=== PATIENT | female | born 1965 | race Caucasian/White ===

== ENCOUNTER 2020-05-17 11:12 | Outpatient (REF) | payer OTHER, SELFPAY | END 2020-05-17 11:13 | disposition home or self-care (01) | LOC: HO.LAB 11:12 | PROVIDERS: Visit Provider Hospitalist | DX: Z20.822 Contact with and (suspected) exposure to COVID-19 (principal) | CPT/HCPCS: 36415; U0003 ==

== ENCOUNTER 2021-06-29 10:04 | Outpatient (REF) | payer OTHER, SELFPAY ==
--- NOTE | ~2021-06-29 | MM_ITS ---
EXAMINATION: MM SCREENING DIGITAL BREAST TOMOSYNTHESIS, BILATERAL CLINICAL INFORMATION: Screening. Asymptomatic. The lifetime risk of breast cancer based on the Tyrer-Cuzick Model is 7%. COMPARISON: Mammography: 05/28/2019, 05/22/2018, 08/15/2016 TECHNIQUE: Digital breast tomosynthesis is performed in both the craniocaudal and mediolateral oblique views along with computer-aided detection (CAD). Synthesized 2D images are generated from the tomosynthesis. FINDINGS: There are scattered areas of fibroglandular density (ACR BI-RADS breast composition Category b). There are no significant masses, abnormal calcifications, or other abnormalities. Parenchymal pattern is similar to prior studies. There are no significant changes. MM/MM tomosynthesis screening BI IMPRESSION: No mammographic evidence of malignancy. ASSESSMENT: BI-RADS 1: Negative RECOMMENDATION: Routine annual mammography screening. This patient's information was entered into a reminder system with a target due date for their next mammogram.
== END 2021-06-29 10:05 | disposition home or self-care (01) ==
LOC: HO.MAMMO 10:04
PROVIDERS: Visit Provider Pediatrics
DX: Z12.31 Encounter for screening mammogram for malignant neoplasm of breast (principal)
CPT/HCPCS: 77063; 77067

== ENCOUNTER 2022-03-21 14:15 | Outpatient (REF) | payer OTHER, SELFPAY ==
--- NOTE | ~2022-03-21 | MM_ITS ---
EXAMINATION: MM DIAGNOSTIC DIGITAL BREAST TOMOSYNTHESIS, BILATERAL US TARGETED BREAST, LEFT CLINICAL INFORMATION: Left breast lump upper outer quadrant. COMPARISON: Mammography: 06/29/2021 and studies dating back to 03/13/2012. TECHNIQUE: Digital breast tomosynthesis is performed in both the craniocaudal and mediolateral oblique views along with computer-aided detection (CAD). Synthesized 2D images are generated from the tomosynthesis. FINDINGS: There are scattered areas of fibroglandular density (ACR BI-RADS breast composition Category b). There are no significant masses, abnormal calcifications, or other abnormalities. ULTRASOUND: Targeted left breast ultrasound did not demonstrate any suspicious cystic or solid masses or region of abnormal distal sound shadowing. There is noted to be a homogeneously hyperechoic and circumscribed lesion without internal vascularity and without distal sound shadowing representing a lipoma at 12 o'clock position left breast. Results are discussed with the patient at time of visit. MM/MM tomosynthesis diagnostic BI IMPRESSION: No mammographic or ultrasound evidence of malignancy. ASSESSMENT: BI-RADS 2: Benign. RECOMMENDATION: Routine annual mammography screening. This patient's information was entered into a reminder system with a target due date for their next mammogram.
== END 2022-03-21 14:16 | disposition home or self-care (01) ==
LOC: HO.MAMMO 14:15
PROVIDERS: Visit Provider Obstetrics & Gynecology
DX: N63.21 Unspecified lump in the left breast, upper outer quadrant (principal)
CPT/HCPCS: 76642; 77062; 77066

== ENCOUNTER 2022-10-22 15:42 | Outpatient (REF) | payer OTHER, SELFPAY ==
--- NOTE | ~2022-10-22 | MM_ITS ---
EXAMINATION: MM SCREENING DIGITAL BREAST TOMOSYNTHESIS, BILATERAL CLINICAL INFORMATION: Screening. Asymptomatic. Family history breast cancer, mother. The lifetime risk of breast cancer based on the Tyrer-Cuzick Model is 14%. COMPARISON: Mammography: 03/21/2022, 06/29/2021, 05/28/2019, 05/22/2018; left breast ultrasound 03/21/2022 TECHNIQUE: Digital breast tomosynthesis is performed in both the craniocaudal and mediolateral oblique views along with computer-aided detection (CAD). Synthesized 2D images are generated from the tomosynthesis. FINDINGS: There are scattered areas of fibroglandular density (ACR BI-RADS breast composition Category b). There are no significant masses, abnormal calcifications, or other abnormalities. Parenchymal pattern is similar to prior studies. There is no developing density or architectural abnormality. The axilla and skin contours are unremarkable. No significant changes. MM/MM tomosynthesis screening BI IMPRESSION: No mammographic evidence of malignancy. ASSESSMENT: BI-RADS 1: Negative RECOMMENDATION: Routine annual mammography screening. This patient's information was entered into a reminder system with a target due date for their next mammogram.
== END 2022-10-22 15:43 | disposition home or self-care (01) ==
LOC: HO.MAMMO 15:42
PROVIDERS: Visit Provider Internal Medicine
DX: Z12.31 Encounter for screening mammogram for malignant neoplasm of breast (principal)
CPT/HCPCS: 77063; 77067

== ENCOUNTER 2023-01-05 18:05 | Emergency (ER) | payer OTHER, SELFPAY ==
--- NOTE | ~2023-01-05 | XR_ITS ---
EXAMINATION: XR WRIST, LEFT XR HAND, LEFT CLINICAL INFORMATION: Pain radial aspect of the wrist COMPARISON: None available. TECHNIQUE: PA, lateral, and oblique views of the left wrist and PA, lateral, and oblique views of the left hand FINDINGS: Minor spurring only. Scaphoid intact. No deformity or focal bony lesion. No erosive arthritis. XR/XR hand wrist LT IMPRESSION: Minor spurring only. No evidence of an acute fracture.
[2023-01-05 18:23] VITALS: BP 156/94; PULSE 99; RESP 18; TEMP 36.4; O2SAT 96; BMI 37.2
--- NOTE | 2023-01-05 18:23 | ED.GENADULT ---
HPI - General Adult General Chief complaint: Extremity Injury, Upper Stated complaint: Wants Xray of Lft wrist/Fall/Injury Time Seen by Provider: 01/05/23 20:21 Source: patient Mode of arrival: ambulatory Limitations: no limitations History of Present Illness HPI narrative: Patient is a 57-year-old right hand dominant female presenting to the emergency department with complaint of left wrist pain after a fall this morning. States she dropped her keys and when she bent over to pick them up she lost her footing and fell forward. Complains of left wrist pain and swelling on radial side. Full ROM all fingers. Took Tylenol this morning. Denies any numbness or tingling. BP elevated in triage, patient states that she just started taking amlodipine. MD complaint: wrist pain Onset (ago): hour(s) Location: upper extremity Radiation: non-radiation Severity: moderate Quality: aching Pain Consistency: constant Relieving factors: rest Exacerbating factors: movement Associated symptoms: denies other symptoms Treatments prior to arrival: other (Tylenol) Related Data Home Medications Medication Instructions Recorded Confirmed No Known Home Meds 05/17/20 Allergies Allergy/AdvReac Type Severity Reaction Status Date / Time azithromycin [AZITHROMYCIN] Allergy Intermediate Hives Verified 01/05/23 18:27 clarithromycin [From Biaxin] Allergy Intermediate Nightmare, Verified 01/05/23 18:27 Rash erythromycin base Allergy Intermediate Nausea Verified 01/05/23 18:27 Sulfa (Sulfonamide Allergy Intermediate Rash Verified 01/05/23 18:27 Antibiotics) sulfamethoxazole Allergy Intermediate Hives Verified 01/05/23 18:27 [From Bactrim] trimethoprim [From Bactrim] Allergy Intermediate Hives Verified 01/05/23 18:27 adhesive Allergy Mild Rash Verified 01/05/23 18:27 Review of Systems Review of Systems: As per HPI Yes all other systems are reviewed and are negative Constitutional: Constitutional: Reports as per HPI Physical Exam ED Vital Signs: Vital Signs - 24 hr 01/05/23 18:23 Temperature 97.6 F Pulse Rate 99 Respiratory Rate 18 Blood Pressure 156/94 H Pulse Oximetry 96 Oxygen Delivery Method Room Air BMI result Body Mass Index 37.2 Vital signs have been reviewed and appear to be correct. Blood pressure elevated. Heart rate normal. Respiratory rate normal. Temperature normal. Oxygen saturation normal. Const General: cooperative, healthy appearing and no acute distress Orientation/consciousness: oriented to person, oriented to place, oriented to time and patient oriented x3 Limitations: no limitations HENMT Head: Yes normocephalic and Yes atraumatic Ears: external ears normal General nose exam: Normal external nose present Face and sinus: Yes face symmetric Mouth: oropharynx normal and moist mucous membranes Throat: Yes uvula midline Eyes Pupils: Equal, round and reactive pupils present Neck Neck: Yes normal visual inspection and Yes supple Resp Effort & Inspection: normal respiratory effort and able to speak in complete sentences Auscultation: clear to auscultation bilaterally Cardio Rate: regular rate Rhythm: regular rhythm Heart sounds: S1 normal heart sound present and S2 normal heart sound present GI Palpation (GI): Soft to palpation and nontender Auscultation: normoactive bowel sounds General: Yes no CVA tenderness Back/Spine/Pelvis Back: no CVA tenderness Skin General skin exam: elasticity normal and turgor normal Neuro General: oriented to person, oriented to place, oriented to time, patient oriented x3, moves all extremities, no focal motor deficits and CN's II-XI intact bilaterally Cranial nerves: Yes Equal, round and reactive pupils present Cognition (Neuro): normal cognition Extrem General: Yes full ROM, Yes normal exam except as noted, Yes no pedal edema and Yes no calf tenderness Left upper extremity: wrist forearm distal Details: tenderness Location: of the distal radius, swelling Location: of the dorsal wrist, normal ROM, normal vascular exam and radial pulse present; no unusual warmth and no ecchymosis and hand Details: normal to inspection, normal capillary refill, neuromotor exam normal, neurosensory exam normal and normal ROM of fingers Psych Mental Status: mental status grossly normal Affect: normal affect Thought process: Normal thought process present Medical Decision Making Medical Decision Making MDM Narrative: Patient is a 57-year-old right hand dominant female presenting to the emergency department with complaint of left wrist pain after a fall this morning. On exam patient is awake, A+Ox3, VS WNL, afebrile, normal neurological exam without focal deficits, mild swelling and tenderness to left distal radius, full ROM, 2+ radial pulse, no ecchymosis. Given reported symptoms and physical exam findings, initial differential includes strain, sprain, fracture. X-ray notable for no acute fracture. My interpretation is in agreement with the radiologist's interpretation. X-ray results discussed with patient and all questions answered. Yfn wrap applied in the ED with positive CMS prior to and after application. Advised patient to elevate wrist while at rest, apply ice throughout the day, Tylenol and ibuprofen as needed for discomfort. Will refer patient to Orthopedics for any ongoing symptoms. Advised patient to follow-up with PCP as well. Return precautions discussed. Patient verbalized understanding of and agreement with plan. Differential Diagnosis Differential Diagnoses: The differential diagnosis associated with the presentation includes As per [facility] Independent Interpretation I performed an independent interpretation of an: Plain X-Ray Interpretation: no fracture left wrist Radiology Impression Discussion of test interpretation with radiology: I have reviewed the radiologist's reading. Radiologist Impression: XR/XR hand wrist LT IMPRESSION: Minor spurring only. No evidence of an acute fracture. External Record Review External record reviewed: Inpatient record, Office record and Outpatient record Discharge Plan Discharge Clinical Impression: Left wrist pain Patient Disposition: Home, Self-Care Instructions: Wrist Injury (ED), R.I.C.E. Treatment (ED) Additional Instructions: You have been evaluated in the emergency department today for wrist pain. Your evaluation did not find evidence of medical conditions requiring emergent intervention at this time. No evidence of fracture on x-ray. Please rest, ice, and elevate your wrist, and resume normal activities as tolerated. We recommend you take 600mg ibuprofen every 6 hours or 650mg Tylenol every 6 hours as needed for pain. If needed you can alternate these medications as they take 1 medication every 3 hours. For instance at noon take ibuprofen, then at 3:00 p.m. take Tylenol, then at 6:00 p.m. take ibuprofen. Please schedule an appointment for follow-up with your primary care provider this week. Return to the emergency department if you experience worsening pain, numbness, tingling, change of color in your hand, or any other concerning symptoms. If symptoms persist beyond the next 1-2 weeks, you can contact orthopedics for a follow up appointment. Prescriptions: No Action No Known Home Meds Referrals: [facility] [place] Orthopedic Surgeons [Provider Group]
== END 2023-01-05 20:42 | disposition home or self-care (01) ==
PROVIDERS: Emergency Provider Internal Medicine; PCP Internal Medicine
DX: M25.532 Pain in left wrist (principal); Z79.899 Other long term (current) drug therapy
CPT/HCPCS: 73110; 73130; 99282; 99283

== ENCOUNTER 2023-03-06 11:04 | Outpatient (AMB) | payer OTHER, SELFPAY ==
[2023-03-06 11:37] VITALS: BP 142/82; PULSE 91; O2SAT 98; BMI 38.2
--- NOTE | 2023-03-06 11:37 | AM.OFFWIN_ITS ---
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) Patient Tobacco Use Status: Never used Tobacco Allergies azithromycin [AZITHROMYCIN] Allergy (Intermediate, Verified 03/06/23 11:38) Hives clarithromycin [From Biaxin] Allergy (Intermediate, Verified 03/06/23 11:38) Nightmare, Rash erythromycin base Allergy (Intermediate, Verified 03/06/23 11:38) Nausea Sulfa (Sulfonamide Antibiotics) Allergy (Intermediate, Verified 03/06/23 11:38) Rash sulfamethoxazole [From Bactrim] Allergy (Intermediate, Verified 03/06/23 11:38) Hives trimethoprim [From Bactrim] Allergy (Intermediate, Verified 03/06/23 11:38) Hives adhesive Allergy (Mild, Verified 03/06/23 11:38) Rash Do you need a note to return to daycare/school/sports/work: Yes HPI EST/left wrist injury(lobby) 2 HPI0 Details Patient is a 57-year-old female came in today to be evaluated for pain and weakness left wrist Patient had a fall January 05 she tripped and fell on her left lower extremity She does not remember if her hand was outstretched or not. But she was evaluated at [facility] She had an x-ray of wrist done in the emergency room which showed Minor spurring only. No evidence of an acute fracture. However she is not getting better, on examination she is losing muscle mass over her thumb And have of week wrist metal roaster compared to right side. I am ordering x-ray of her wrist Patient will need evaluation by hand specialist Meanwhile her wrist splint was provided [facility] Social History Patient Tobacco Use Status: Never used Tobacco Review of Systems Const All systems reviewed & are unremarkable except as noted in HPI and below Physical Exam Vital Signs: Last Vital Signs Pulse 91 03/06/23 11:37 BP 142/82 H 03/06/23 11:37 Pulse Ox 98 03/06/23 11:37 Oxygen Delivery Method Room Air 11/03/23 11:37 BMI result Body Mass Index 38.2 Const General: no acute distress Orientation/consciousness: patient oriented x3 Eyes General: appearance normal, both eyes and all related structures Resp Effort & Inspection: normal respiratory effort and able to speak in complete sentences Auscultation: clear to auscultation bilaterally Neuro General: patient oriented x3 Extrem Hand/finger images: 2 1. Reduce muscle mass compared to right 2. Pain with palpation and movement Psych Mental Status: mental status grossly normal Assessment & Plan Assessment & Plan (1) Left wrist injury: Code(s): S69.92XA - Unspecified injury of left wrist, hand and finger(s), initial encounter Qualifiers: Encounter type: sequela Qualified Code(s): S69.92XS - Unspecified injury of left wrist, hand and finger(s), sequela (2) Wrist weakness: Code(s): R29.898 - Other symptoms and signs involving the musculoskeletal system (3) Decreased metal roaster strength of left hand: Code(s): R29.898 - Other symptoms and signs involving the musculoskeletal system (4) Left wrist pain: Code(s): M25.532 - Pain in left wrist (5) Muscle wasting: Code(s): M62.50 - Muscle wasting and atrophy, not elsewhere classified, unspecified site Qualifiers: Laterality: left Muscle atrophy area: hand Qualified Code(s): M62.542 - Muscle wasting and atrophy, not elsewhere classified, left hand Plan Patient is a 57-year-old female came in today to be evaluated for pain and weakness left wrist Patient had a fall January 05 she tripped and fell on her left lower extremity She does not remember if her hand was outstretched or not. But she was evaluated at [facility] She had an x-ray of wrist done in the emergency room which showed Minor spurring only. No evidence of an acute fracture. However she is not getting better, on examination she is losing muscle mass over her thumb And have of week wrist metal roaster compared to right side. I am ordering x-ray of her wrist Patient will need evaluation by hand specialist Meanwhile her wrist splint was provided Orders: Orders 2 XR hand wrist LT Today R29.898 - Other symptoms and signs involving the musculoskeletal system, S69.92XA - Unspecified injury of left wrist, hand and finger(s), initial encounter Coding Level of Care Code Est Pt Level 4 (78604) Diagnoses Injury of left wrist, sequela S69.92XS Encounter type: sequela Wrist weakness R29.898 Decreased metal roaster strength of left hand R29.898 Left wrist pain M25.532 Atrophy of muscle of left hand M62.542 Laterality: left Muscle atrophy area: hand
== END 2023-03-06 12:37 | disposition home or self-care (01) ==
PROVIDERS: PCP Internal Medicine; Visit Provider Internal Medicine
DX: S69.92XS Unspecified injury of left wrist, hand and finger(s), sequela (principal); R29.898 Other symptoms and signs involving the musculoskeletal system; M25.532 Pain in left wrist; M62.542 Muscle wasting and atrophy, not elsewhere classified, left hand
CPT/HCPCS: 99214

== ENCOUNTER 2023-03-06 11:56 | Outpatient (REF) | payer OTHER, SELFPAY ==
--- NOTE | ~2023-03-06 | XR_ITS ---
EXAMINATION: XR WRIST, LEFT XR HAND, LEFT CLINICAL INFORMATION: Injury left wrist. COMPARISON: None available. TECHNIQUE: PA, lateral, and oblique views of the left wrist and PA, lateral, and oblique views of the left hand FINDINGS: LEFT WRIST: The bones and soft tissues are normal. No fracture. Alignment is anatomic. Joint spaces are maintained. No erosions or soft tissue calcifications. LEFT HAND: The bones and soft tissues are normal. No fracture. Alignment is anatomic. Joint spaces are maintained. No erosions or soft tissue calcifications. XR/XR hand wrist LT IMPRESSION: Normal left hand and wrist.
== END 2023-03-06 11:57 | disposition home or self-care (01) ==
LOC: HO.HMGCX 11:56
PROVIDERS: PCP Internal Medicine; Visit Provider Internal Medicine
DX: S69.92XA Unspecified injury of left wrist, hand and finger(s), initial encounter (principal); R29.898 Other symptoms and signs involving the musculoskeletal system
CPT/HCPCS: 73110; 73130

== ENCOUNTER → 2023-05-07 11:12 | Outpatient (BNVA) | payer OTHER, SELFPAY | PROVIDERS: PCP Internal Medicine; Visit Provider Physical Medicine & Rehabilitation ==

== ENCOUNTER 2023-05-14 08:33 | Outpatient (AMB) | payer OTHER, SELFPAY ==
--- NOTE | 2023-05-14 08:48 | MHC.OFFVIS ---
Intake Vital Signs 05/14/23 08:50 Height 5 ft 1 in Weight 202 lb BMI 38.2 Intake Visit Reasons: [employer]- left wrist, hand and finger pain Intake Note: Alfonso 57 yr old right hand dominant female presents today for a new patient visit for her left wrist. States her pain is mainly at base of her CMC joint and shooting pain around wrist that started in January S/P falling at work on 01/05/23. Seen in ED and was told this was a sprain. States she is also experiencing numbness and tingling mostly in her tip of the thumb. States she worn a huong wrap for a few weeks and then switch to a brace after seeing her PCP which increase her pain. Allergies azithromycin [AZITHROMYCIN] Allergy (Intermediate, Verified 05/14/23 08:51) Hives clarithromycin [From Biaxin] Allergy (Intermediate, Verified 05/14/23 08:51) Nightmare, Rash erythromycin base Allergy (Intermediate, Verified 05/14/23 08:51) Nausea Sulfa (Sulfonamide Antibiotics) Allergy (Intermediate, Verified 05/14/23 08:51) Rash sulfamethoxazole [From Bactrim] Allergy (Intermediate, Verified 05/14/23 08:51) Hives trimethoprim [From Bactrim] Allergy (Intermediate, Verified 05/14/23 08:51) Hives adhesive Allergy (Mild, Verified 05/14/23 08:51) Rash HPI HPI Comments History of Present Illness Details Right handed, 57 year old, works as [employer]. Last January 2023, had fallen on outstretched left hand. Went to ER 01/05/23, xrays then was unremarkable, no fracture. Advised to huong wrap. Follow up xray in February also normal. However she continued to have shooting pain on left thumb, radial wrist, sometimes goes to wrist. Noted perhaps some swelling or change in the dent along the thumb. Tingling on the tip of thumb, especially when waking up in the morning. But denies actual numbness. Denies associated neck pain. 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 MSK: Some soft tissue swelling at the base of the thumb. No joint effusion or redness seen on left hand. No joint effusion noted. No deformity noted. No intrinsic hand weakness noted. No atrophy noted. Erika test positive left reproduce her usual pain. Carpal compression test negative. Tinel sign negative. No tenderness on medial or lateral epicondyles of elbow. Strength is 5/5 in all muscle groups tested. No increased tone noted. Neurological: Neurologic examination of the upper and lower extremities was nonfocal with intact sensation, muscle stretch reflexes and without focal motor deficits . Barone?s negative bilaterally. Gait is non-antalgic without loss of balance. Results Reviewed Results Reviewed: I independently reviewed the results of the following: Hand and wrist x-rays from February and January 2023, no fractures or displacement seen I reviewed records from the following: PCP Dr. Horton Assessment & Plan Assessment & Plan (1) De Quervain's tenosynovitis, left: Code(s): M65.4 - Radial styloid tenosynovitis [de Quervain] Plan Show signs of left de Quervain tenosynovitis. This diagnosis would explain her symptoms. No joint inflammation seen. No signs of carpal tunnel or nerve entrapment seen. X-ray did not show any fracture and clinically I see no suspicion for. Will start with wearing a [employer]fort Cool thumb spica splint during the day. Instructions and precautions advised. We will start her on ibuprofen 600 mg t.i.d. for 7 days, take with full stomach. Side effects discussed. If not better in 2 months, we could consider injection. Talked about relative rest, icing avoiding heavy lifting and repetitive motion for now. Prognosis is good for recovery. Assessment and plan discussed with patient, and patient was agreeable. All questions were answered thoroughly. Follow-up 2 months. Monica Boone MD, SAMANTHA Board Certified, [place] [employer] and Rehabilitation (ABPMR) Board Certified, [place] Board of Electrodiagnostic Medicine (ABEM) Medications: New ibuprofen 600 mg PO TID 21 tabs 0RF M65.4 - Radial styloid tenosynovitis [de Quervain] Coding Level of Care Code New Pt Level 4 (55210) Diagnoses De Quervain's tenosynovitis, left M65.4
[2023-05-14 08:50] VITALS: BMI 38.2
== END 2023-05-14 09:28 | disposition home or self-care (01) ==
PROVIDERS: PCP Internal Medicine; Visit Provider Physical Medicine & Rehabilitation
DX: M65.4 Radial styloid tenosynovitis [de Quervain] (principal)
CPT/HCPCS: 99204

== ENCOUNTER → 2023-05-14 08:33 | Outpatient (BNVA) | payer OTHER, SELFPAY | PROVIDERS: PCP Internal Medicine; Visit Provider Physical Medicine & Rehabilitation ==

== ENCOUNTER 2023-05-29 10:54 | Outpatient (AMB) | payer OTHER, SELFPAY ==
--- NOTE | 2023-05-29 10:56 | A.OFFPC_ITS ---
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 per [place] Allergies azithromycin [AZITHROMYCIN] Allergy (Intermediate, Verified 05/29/23 10:59) Hives clarithromycin [From Biaxin] Allergy (Intermediate, Verified 05/29/23 10:59) Nightmare, Rash erythromycin base Allergy (Intermediate, Verified 05/29/23 10:59) Nausea Sulfa (Sulfonamide Antibiotics) Allergy (Intermediate, Verified 05/29/23 10:59) Rash sulfamethoxazole [From Bactrim] Allergy (Intermediate, Verified 05/29/23 10:59) Hives trimethoprim [From Bactrim] Allergy (Intermediate, Verified 05/29/23 10:59) Hives adhesive Allergy (Mild, Verified 05/29/23 10:59) Rash Medication List - Last Reconciled 05/29/23 by Radha Horton MD amlodipine 5 mg PO DAILY ibuprofen 600 mg PO TID levalbuterol tartrate 45 mcg/actuation inhalation lorazepam 0.5 mg PO DAILY PRN Tobacco use date assessed: 05/29/23 Dental Screening Dental Screen Date: 05/29/23 Did you have a dental visit in the last 12 months?: Yes Did you have a dental problem in the last 6 months where you did not have access to dental care?: No Was dental information given to patient?: Patient has dentist HPI 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 est care ok per [place] HPI Details Patient is 48-year-old female came in today for establish care visit Previous primary care is located in [facility] I do not the medical records I do have some labs in the chart which were done in 2020 Patient says that last set of labs were done with the primary care 3 months ago Lipid disorder: I see that her LDL level is 161, recently labs showed very high triglycerides as per patient She is taking no medication for elevated lipids, I am repeating labs again Her B12 level was low in 2020 patient was started on supplement that she is taking we will recheck the level. Her white count was slightly low in 2020 we will be rechecking that as well Hypertension: Blood pressure is elevated she is on amlodipine 5 mg I am increasing the dose to 10 mg Seasonal asthma, patient is taking albuterol as needed Arthrosis: Ibuprofen as needed with food Patient have a history of ovarian cancer in 2007 she had chemotherapy and then radiation therapy Patient has developed irritable bowel after the radiation, whenever she is nervous she has diarrhea Patient is taking lorazepam 0.5 mg as needed that is helping Her mother is having metastatic breast cancer and is in her terminal stage Which is causing distress inpatient, she tells me that she is having hard time sleeping at night I have told her that she may take lorazepam at night if needed, I have sent 60 t ablets for 3 months I have sent message to our behavior health coordinator so we can have patient establish with a therapist We will provide with refill when patient will return in 3 months for follow-up In 2019 her parathyroid hormone was elevated I will be rechecking that BMI is elevated need to lose weight I will talk to her more at next visit Her OBGYN is Dr. Peraza at [facility] however patient is thinking of changing the provider She is now having regular gynecological checkups and has been stable after the chemo and radiation therapy Her stage was 1 b She recently had right lower extremity varicose vein treatment by Dr. 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 1. Little interest or pleasure in doing things: not at all 2. Feeling down, depressed, or hopeless: several days 3. Trouble falling or staying asleep, or sleeping too much: more than half the days 4. Feeling tired or having little energy: several days 5. Poor appetite or overeating: several days 6. Feeling bad about yourself - or that you are a failure or have let yourself or your family down: not at all 7. Trouble concentrating on things, such as reading the newspaper or watching television: several days 8. Moving or speaking so slowly that other people could have noticed. Or the opposite - being so fidgety or restless that you have been moving around a lot more than usual: not at all 9. Thoughts that you would be better off or of hurting yourself in some way: not at all Total score: 6 Depression Screening Interpretation: Negative Depression Screening Done: Yes 66016 - PHQ-9 Billing: Yes Source: Developed by Drs. Luis A Correia, Catie Dominguez, Paul Pollard and colleagues, with an educational john paul from [employer]. Thrive Questionnaire Date Thrive assessed: 05/29/23 I am a: Patient What is your living situation today?: I have a steady place to live Within the past 12 months, did the food you bought not last and you didn't have the money to get more?: Never true Within the past 12 months, did you worry whether your food would run out before you got money to buy more?: Never true Do you have trouble paying for medicines?: No Do you have trouble getting transportation to medical appointments?: No Do you have trouble paying your heating and electricity bill?: No Do you have trouble taking care of your child, family member or friend?: No Do you have trouble with day-to-day activities such as bathing, preparing meals, shopping, managing finances, etc.?: No Are you currently unemployed and looking for a job?: No Are you interested in more education?: No Please select the resources that you would like help with: None Currently or been in a relationship where the following occur: no concerns reported THRIVE Score: 0 AUDIT C Alcohol Use Questionnaire (AUDIT-C) 1. How often do you have a drink containing alcohol?: Never 3. How often do you have six or more drinks on one occasion?: Never Total Score: 0 Score Reviewed/Action Taken: Yes NARINDER-7 AMB Questionnaire NARINDER-7 Date NARINDER - 7 assessed: 05/29/23 Feeling nervous, anxious, or on edge: 1 = Several days Not being able to stop or control worryin = Not at all Worrying too much about different things: 1 = Several days Trouble relaxin = Several days Being so restless that it is hard to sit still: 0 = Not at all Becoming easily annoyed or irritable: 1 = Several days Feeling afraid as if something awful might happen: 1 = Several days Total NARINDER-7 score (0-4 normal; 5-9 mild; 10-14 moderate; 15-21 severe): 5 Source: Developed by Drs. Luis A Correia, Catie Dominguez, Paul Pollard and colleagues, with an educational john paul from [employer]. NARINDER-7 Assessment Billing NARINDER-7 Assessment Tool: NARINDER-7 Assessment 47780 Review of Systems Const Denies chills, Denies fever(s) and Denies headache(s) Eyes Denies blurry vision ENT Denies headache(s), Denies nasal discharge, Denies nasal obstruction, Denies odynophagia and Denies sinus pain Card Denies chest pain at rest and Denies chest pain with activity Resp Denies cough and Denies hemoptysis GI Denies diarrhea, Denies odynophagia, Denies vomiting and Denies hematemesis Reports as per HPI Musc Denies abnormal gait Skin/Breast Reports as per HPI Neuro Denies Neuro-related abnormal movements, Denies Abnormal speech present, Denies abnormal gait, Denies headache(s) and Denies Sensory deficit (Neuro) Psych Denies mood swings and Denies paranoia Endo Reports as per HPI Parth/Lymph Reports as per HPI Aller/Immun Reports as per HPI Physical exam (Primary Care) Vital Signs: Last Vital Signs Pulse 99 05/29/23 10:58 BP 148/78 H 05/29/23 10:58 Pulse Ox 99 05/29/23 10:58 Oxygen Delivery Method Room Air 05/29/23 10:58 BMI result Body Mass Index 38.4 Tobacco/Smoking Status: Tobacco use Status Tobacco use date assessed 05/29/23 05/29/23 11:01 Patient Tobacco Use Status Never used Tobacco 05/29/23 10:58 e-Cigarette/Vaping Use Never Used 05/29/23 11:01 PHQ-9: PHQ-9 Score PHQ-9: Total score 6 05/29/23 11:41 Depression Screening Interpretation: Negative Thrive Assessment: Date of Thrive Assessment Date Thrive assessed 05/29/23 05/29/23 11:26 Currently or been in a relationship where the following occur: no concerns reported Const General: cooperative, comfortable and no acute distress Orientation/consciousness: patient oriented x3 HENMT Head: Yes normocephalic and Yes atraumatic Eyes General: appearance normal, both eyes and all related structures Pupils: Equal, round and reactive pupils present EOM: EOMs intact bilaterally Neck Neck: Yes supple and No lymphadenopathy Thyroid: Thyroid normal Lymphatic: no lymphadenopathy noted Chest Breast/axilla palpation: normal palpation of the breasts Resp Effort & Inspection: normal respiratory effort and able to speak in complete sentences Auscultation: clear to auscultation bilaterally Cardio Heart sounds: S1 normal heart sound present and S2 normal heart sound present GI Palpation (GI): Soft to palpation and nontender Auscultation: normal bowel sounds General: Yes no CVA tenderness Back/Spine/Pelvis Back: no CVA tenderness Skin General skin exam: elasticity normal and turgor normal Neuro General: patient oriented x3 and gait normal Cranial nerves: Yes Equal, round and reactive pupils present Speech: No Abnormal speech present Sensory Exam: No Sensory deficit (Neuro) Coordination: tandem gait normal and Romberg test negative Extrem General: Yes normal exam except as noted and No edema Assessment and Plan Assessment & Plan (1) Establishing care with new doctor, encounter for: Code(s): Z76.89 - Persons encountering health services in other specified circumstances (2) Hypertension, essential: Code(s): I10 - Essential (primary) hypertension (3) Arthrosis: Code(s): M19.90 - Unspecified osteoarthritis, unspecified site (4) Obesity due to excess calories: Code(s): E66.09 - Other obesity due to excess calories Qualifiers: Body mass index: BMI 38.0-38.9 Obesity classification: adult class 2 (BMI 35 - 39.9) Serious obesity comorbidity presence: with serious comorbidity Qualified Code(s): E66.01 - Morbid (severe) obesity due to excess calories; Z68.38 - Body mass index [BMI] 38.0-38.9, adult (5) Lipid disorder: Code(s): E78.9 - Disorder of lipoprotein metabolism, unspecified (6) Seasonal asthma: Code(s): J45.998 - Other asthma (7) Parathyroid hormone excess: Code(s): E21.3 - Hyperparathyroidism, unspecified (8) History of cervical cancer: Code(s): Z85.41 - Personal history of malignant neoplasm of cervix uteri (9) Radiation adverse effect: Code(s): T66.XXXA - Radiation sickness, unspecified, initial encounter Qualifiers: Encounter type: sequela Qualified Code(s): T66.XXXS - Radiation sickness, unspecified, sequela (10) Irritable bowel syndrome with diarrhea: Code(s): K58.0 - Irritable bowel syndrome with diarrhea (11) Depression, major, single episode, moderate: Code(s): F32.1 - Major depressive disorder, single episode, moderate (12) Difficulty sleeping: Code(s): G47.9 - Sleep disorder, unspecified Plan Patient is 48-year-old female came in today for establish care visit Previous primary care is located in [facility] I do not the medical records I do have some labs in the chart which were done in 2019 Patient says that last set of labs were done with the primary care 3 months ago Lipid disorder: I see that her LDL level is 161, recently labs showed very high triglycerides as per patient She is taking no medication for elevated lipids, I am repeating labs again Her B12 level was low in 2019 patient was started on supplement that she is taking we will recheck the level. Her white count was slightly low in 2020 we will be rechecking that as well Hypertension: Blood pressure is elevated she is on amlodipine 5 mg I am increasing the dose to 10 mg Seasonal asthma, patient is taking albuterol as needed Arthrosis: Ibuprofen as needed with food Patient have a history of ovarian cancer in 2007 she had chemotherapy and then radiation therapy Patient has developed irritable bowel after the radiation, whenever she is nervous she has diarrhea Patient is taking lorazepam 0.5 mg as needed that is helping Her mother is having metastatic breast cancer and is in her terminal stage Which is causing distress inpatient, she tells me that she is having hard time sleeping at night I have told her that she may take lorazepam at night if needed, I have sent 60 tablets for 3 months I have sent message to our behavior health coordinator so we can have patient establish with a therapist We will provide with refill when patient will return in 3 months for follow-up In 2019 her parathyroid hormone was elevated I will be rechecking that BMI is elevated need to lose weight I will talk to her more at next visit Her OBGYN is Dr. Peraza at [facility] however patient is thinking of changing the provider She is now having regular gynecological checkups and has been stable after the chemo and radiation therapy Her stage was 1 b Patient is due for mammogram Colonoscopy was 1 year ago at [facility] She recently had right lower extremity varicose vein treatment by Dr. Vanessa April of 2023 at [facility] Follow-up 3 months Orders: Orders Complete Blood Count Auto Diff Today E21.3 - Hyperparathyroidism, unspecified, E66.09 - Other obesity due to excess calories, E78.9 - Disorder of lipoprotein metabolism, unspecified, I10 - Essential (primary) hypertension, J45.998 - Other asthma, K58.0 - Irritable bowel syndrome with diarrhea, M19.90 - Unspecified osteoarthritis, unspecified site, T66.XXXA - Radiation sickness, unspecified, initial encounter, Z76.89 - Persons encountering health services in other specified circumstances TSH reflex Free T4 Today E21.3 - Hyperparathyroidism, unspecified, E66.09 - Other obesity due to excess calories, E78.9 - Disorder of lipoprotein metabolism, unspecified, I10 - Essential (primary) hypertension, J45.998 - Other asthma, K58.0 - Irritable bowel syndrome with diarrhea, M19.90 - Unspecified osteoarthritis, unspecified site, T66.XXXA - Radiation sickness, unspecified, initial encounter, Z76.89 - Persons encountering health services in other specified circumstances Parathyroid Hormone Related Pr Today E21.3 - Hyperparathyroidism, unspecified, E66.09 - Other obesity due to excess calories, E78.9 - Disorder of lipoprotein metabolism, unspecified, I10 - Essential (primary) hypertension, J45.998 - Other asthma, K58.0 - Irritable bowel syndrome with diarrhea, M19.90 - Unspecified osteoarthritis, unspecified site, T66.XXXA - Radiation sickness, unspecified, initial encounter, Z76.89 - Persons encountering health services in other specified circumstances Comprehensive [place]. Panel Fast Today E21.3 - Hyperparathyroidism, unspecified, E66.09 - Other obesity due to excess calories, E78.9 - Disorder of lipoprotein metabolism, unspecified, I10 - Essential (primary) hypertension, J45.998 - Other asthma, K58.0 - Irritable bowel syndrome with diarrhea, M19.90 - Unspecified osteoarthritis, unspecified site, T66.XXXA - Radiation sickness, unspecified, initial encounter, Z76.89 - Persons encountering health services in other specified circumstances Lipid Panel Today E21.3 - Hyperparathyroidism, unspecified, E66.09 - Other obesity due to excess calories, E78.9 - Disorder of lipoprotein metabolism, unspecified, I10 - Essential (primary) hypertension, J45.998 - Other asthma, K58.0 - Irritable bowel syndrome with diarrhea, M19.90 - Unspecified osteoarthritis, unspecified site, T66.XXXA - Radiation sickness, unspecified, initial encounter, Z76.89 - Persons encountering health services in other specified circumstances Vitamin B12 Today E21.3 - Hyperparathyroidism, unspecified, E66.09 - Other obesity due to excess calories, E78.9 - Disorder of lipoprotein metabolism, unspecified, I10 - Essential (primary) hypertension, J45.998 - Other asthma, K58.0 - Irritable bowel syndrome with diarrhea, M19.90 - Unspecified osteoarthritis, unspecified site, T66.XXXA - Radiation sickness, unspecified, initial encounter, Z76.89 - Persons encountering health services in other specified circumstances Vitamin D 25-OH (D2 and D3) Today E21.3 - Hyperparathyroidism, unspecified, E66.09 - Other obesity due to excess calories, E78.9 - Disorder of lipoprotein metabolism, unspecified, I10 - Essential (primary) hypertension, J45.998 - Other asthma, K58.0 - Irritable bowel syndrome with diarrhea, M19.90 - Unspecified osteoarthritis, unspecified site, T66.XXXA - Radiation sickness, unspecified, initial encounter, Z76.89 - Persons encountering health services in other specified circumstances MM tomosynthesis screening BI Today Z12.31 - Encounter for screening mammogram for malignant neoplasm of breast Medications: Changed From lorazepam 0.5 mg PO DAILY PRN To lorazepam 0.5 mg PO BEDTIME PRN 60 tabs 0RF sleep 90 days From amlodipine 5 mg PO DAILY To amlodipine 10 mg PO DAILY 90 tabs 0RF 90 days Coding Level of Care Code New Pt Level 5 (22727) Diagnoses Establishing care with new doctor, encounter for Z Hypertension, essential I10 Arthrosis M19.90 Class 2 severe obesity due to excess calories with serious comorbidity and body mass index (BMI) of 38.0 to 38.9 in adult E66.01; Z68.38 Body mass index: BMI 38.0-38.9 Obesity classification: adult class 2 (BMI 35 - 39.9) Serious obesity comorbidity presence: with serious comorbidity Lipid disorder E78.9 Seasonal asthma J45.998 Parathyroid hormone excess E21.3 History of cervical cancer Z85.41 Adverse effect of radiation, sequela T66.XXXS Encounter type: sequela Irritable bowel syndrome with diarrhea K58.0 Depression, major, single episode, moderate F32.1 Difficulty sleeping G47.9 Additional Codes NARINDER-7 Assessment Billing - NARINDER-7 Assessment Tool: NARINDER-7 Assessment 28689 ([id number]) Time Spent (min) 60 Comment 40 with patient, 10 documentation, 10 coordination of care
[2023-05-29 10:58] VITALS: BP 148/78; PULSE 99; O2SAT 99; BMI 38.4
== END 2023-05-29 11:30 | disposition home or self-care (01) ==
PROVIDERS: PCP Internal Medicine; Visit Provider Internal Medicine
DX: F32.1 Major depressive disorder, single episode, moderate (principal)
CPT/HCPCS: 96127; 99215

== ENCOUNTER 2023-06-25 06:44 | Outpatient (REF) | payer OTHER, SELFPAY ==
[2023-06-25 11:18] LABS: MANUAL DIFF FLAG NO
[2023-06-25 11:31] LABS: Basophils Percent Auto 0.4 % (0-2); Eosinophils Absolute Auto 0.1 X10*3/uL (0.0-0.4); Eosinophils Percent Auto 2.1 % (0-4); Hematocrit 44.4 % (37.0-47.0); Hemoglobin 14.4 g/dl (12.0-16.0); Imm Gran Abs Auto 0.01 X10*3/uL (0.00-0.03); Imm Gran Pct Auto 0.2 % (0.0-0.4); Lymphocytes Absolute Auto 1.6 X10*3/uL (1.2-4.9); Lymphocytes Percent Auto 31.8 % (20-40); Mean Corpuscular HGB Conc 32.4 g/dl (31.0-35.0); Mean Corpuscular Hemoglobin 30.3 pg (27.0-33.0); Mean Corpuscular Volume 93.3 fL (80.0-98.0); Mean Platelet Volume 10.8 fL (9.4-12.3); Monocytes Absolute Auto 0.4 X10*3/uL (0.1-1.2); Monocytes Percent Auto 7.2 % (2-11); Neutrophils Percent Auto 58.3 % (45-73); Platelet Count 215 X10*3/uL (160-400); Red Blood Count 4.76 X10*6/uL (4.20-5.50); Red Cell Distribution Width 12.2 % (11.0-16.0); White Blood Count 5.1 X10*3/uL (4.8-10.8)
[2023-06-25 12:07] LABS: Alanine Aminotransferase 25 U/L (0-31); Albumin Level 4.2 g/dL (3.5-5.0); Alkaline Phosphatase 84 U/L (39-117); Anion Gap 13 (12-20); Aspartate Amino Transferase 23 U/L (5-31); Bilirubin Total 0.4 mg/dL (0.0-1.0); Blood Urea Nitrogen 14 mg/dL (9-16); Calcium 9.5 mg/dL (8.4-10.2); Carbon Dioxide 30 mmol/L (22-29); Chloride 104 mmol/L (96-108); Cholesterol 229 mg/dL (<200); Estimated Glomerular Filt Rate > 60; Glucose Fasting 95 mg/dL (60-99); HDL Cholesterol 54 mg/dL (>40); LDL Cholesterol Calculated 140 mg/dL (<100); Sodium 143 mmol/L (135-145); Total Protein 6.7 g/dL (6.5-8.0); Triglycerides 177 mg/dL (<150)
[2023-06-25 12:11] LABS: Vitamin B12 262 pg/mL (200-900)
[2023-06-29 13:49] LABS: Vitamin D 25-OH, D2 <4 ng/mL; Vitamin D 25-OH, D3 15 ng/mL; Vitamin D 25-OH, Total 15 ng/mL (30-100)
[2023-07-09 16:18] LABS: Parathyroid Hormone Related Pr 9 pg/mL (11-20)
== END 2023-06-25 06:45 | disposition home or self-care (01) ==
LOC: HO.HMGCLDS 06:44
PROVIDERS: PCP Internal Medicine; Visit Provider Internal Medicine
DX: I10 Essential (primary) hypertension (principal); M19.90 Unspecified osteoarthritis, unspecified site; E66.09 Other obesity due to excess calories; E78.9 Disorder of lipoprotein metabolism, unspecified; J45.998 Other asthma; E21.3 Hyperparathyroidism, unspecified; K58.0 Irritable bowel syndrome with diarrhea; T66.XXXA Radiation sickness, unspecified, initial encounter; Z76.89 Persons encountering health services in other specified circumstances
CPT/HCPCS: 36415; 80053; 80061; 82306; 82607; 83519; 84443; 85025

== ENCOUNTER 2023-07-16 09:51 | Outpatient (AMB) | payer OTHER, SELFPAY ==
--- NOTE | 2023-07-16 09:55 | MHC.OFFVIS ---
Intake Vital Signs 07/16/23 09:58 Height 5 ft 1 in Weight 203 lb BMI 38.4 Handedness Right Intake Visit Reasons: OV - left De Quervain's tenosynovitis Intake Note: Alfonso is a 57 year old right hand dominant female who presents today for a follow up of her left De Quervain's tenosynovitis. Patient was given a comfort cool brace at her last visit witch is giving her relief. She states that the ibuprofen is giving her good relief. Currently, is still haivng numbness in the tip of her thumb. Patient is doing a lot better than the last visit. Allergies azithromycin [AZITHROMYCIN] Allergy (Intermediate, Verified 05/29/23 10:59) Hives clarithromycin [From Biaxin] Allergy (Intermediate, Verified 05/29/23 10:59) Nightmare, Rash erythromycin base Allergy (Intermediate, Verified 05/29/23 10:59) Nausea Sulfa (Sulfonamide Antibiotics) Allergy (Intermediate, Verified 05/29/23 10:59) Rash sulfamethoxazole [From Bactrim] Allergy (Intermediate, Verified 05/29/23 10:59) Hives trimethoprim [From Bactrim] Allergy (Intermediate, Verified 05/29/23 10:59) Hives adhesive Allergy (Mild, Verified 05/29/23 10:59) Rash HPI HPI Comments History of Present Illness Details Right handed, 57 year old, works as [employer]. Last January 2023, had fallen on outstretched left hand. Went to ER 01/05/23, xrays then was unremarkable, no fracture. Advised to huong wrap. Follow up xray in February also normal. However she continued to have shooting pain on left thumb, radial wrist, sometimes goes to wrist. Noted perhaps some swelling or change in the dent along the thumb. Tingling on the tip of thumb, especially when waking up in the morning. But denies actual numbness. Denies associated neck pain. Thought to have left de Quervain tenosynovitis. Put on thumb spica splint which has helped her. She thinks overall her pain has improved. However she has noticed numbness on her left thumb, particularly when waking up in the morning. It could also wake her up during the night, with both hands being numb. Denies any associated neck pain. She did have history of chemotherapy for cervical cancer but did not have constant numbness in hands or feet after. 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 MSK: Some soft tissue swelling at the base of the thumb. No joint effusion or redness seen on left hand. No joint effusion noted. No deformity noted. No intrinsic hand weakness noted. No atrophy noted. Erika test now negative. Carpal compression test negative. Tinel sign negative. No tenderness on medial or lateral epicondyles of elbow. Strength is 5/5 in all muscle groups tested. No increased tone noted. Neurological: Neurologic examination of the upper and lower extremities was nonfocal with intact sensation, muscle stretch reflexes and without focal motor deficits . Barone?s negative bilaterally. Gait is non-antalgic without loss of balance. Results Reviewed Results Reviewed: Ordering Physician: Radha Horton MD Date of Service: 03/06/23 Procedure(s): XR hand wrist LT Accession Number(s): [id number] cc: Radha Horton MD; Jenifer Stanford MD~ EXAMINATION: XR WRIST, LEFT XR HAND, LEFT CLINICAL INFORMATION: Injury left wrist. COMPARISON: None available. TECHNIQUE: PA, lateral, and oblique views of the left wrist and PA, lateral, and oblique views of the left hand FINDINGS: LEFT WRIST: The bones and soft tissues are normal. No fracture. Alignment is anatomic. Joint spaces are maintained. No erosions or soft tissue calcifications. LEFT HAND: The bones and soft tissues are normal. No fracture. Alignment is anatomic. Joint spaces are maintained. No erosions or soft tissue calcifications. XR/XR hand wrist LT IMPRESSION: Normal left hand and wrist. Reviewed PCP notes. Assessment & Plan Assessment & Plan (1) Numbness of left hand: Code(s): R20.0 - Anesthesia of skin (2) De Quervain's tenosynovitis, left: Code(s): M65.4 - Radial styloid tenosynovitis [de Quervain] Plan De Quervain tenosynovitis improved. Continue to wear thumb spica splint if bothering her but can wean eventually. Symptoms of numbness especially at nighttime suggestive of Carpal Tunnel Syndrome. Exam is normal though. We talked about wearing wrist splints at night. We also talked about doing an EMG which she said she will schedule at some point in the future. Currently dealing with mother's illness. Assessment and plan discussed with patient, and patient was agreeable. All questions were answered thoroughly. Follow up as needed or patient to call when she is ready to do EMG. Monica Boone MD, SAMANTHA Board Certified, [place] [employer] and [employer] (ABPMR) Board Certified, [place] [employer] Electro[employer] (ABEM) Coding Level of Care Code Est Pt Level 3 (46624) Diagnoses Numbness of left hand R20.0 De Quervain's tenosynovitis, left M65.4
[2023-07-16 09:58] VITALS: BMI 38.4
== END 2023-07-16 10:20 | disposition home or self-care (01) ==
PROVIDERS: PCP Internal Medicine; Visit Provider Physical Medicine & Rehabilitation
DX: R20.0 Anesthesia of skin (principal); M65.4 Radial styloid tenosynovitis [de Quervain]
CPT/HCPCS: 99213

== ENCOUNTER 2023-09-11 09:40 | Outpatient (AMB) | payer OTHER, SELFPAY ==
[2023-09-11 09:44] VITALS: BP 160/76; PULSE 91; O2SAT 98
--- NOTE | 2023-09-11 09:44 | A.OFFPC_ITS ---
Vital Signs 09/11/23 09:44 Weight 202 lb 2 oz BP 160/76 H Blood Pressure Location Rt brachial Position Sitting Pulse 91 Pulse Source Pulse Oximeter Pulse Oximetry (%) 98 Oxygen Delivery Method Room Air Intake Visit Reasons: 3 month follow up Allergies azithromycin [AZITHROMYCIN] Allergy (Intermediate, Verified 09/11/23 09:46) Hives clarithromycin [From Biaxin] Allergy (Intermediate, Verified 09/11/23 09:46) Nightmare, Rash erythromycin base Allergy (Intermediate, Verified 09/11/23 09:46) Nausea Sulfa (Sulfonamide Antibiotics) Allergy (Intermediate, Verified 09/11/23 09:46) Rash sulfamethoxazole [From Bactrim] Allergy (Intermediate, Verified 09/11/23 09:46) Hives trimethoprim [From Bactrim] Allergy (Intermediate, Verified 09/11/23 09:46) Hives adhesive Allergy (Mild, Verified 09/11/23 09:46) Rash Medication List - Last Reconciled 09/11/23 by Radha Horton MD amlodipine 10 mg PO DAILY 90 days cholecalciferol (vitamin D3) 1,250 mcg PO QWEEK 3 months ibuprofen 600 mg PO TID levalbuterol tartrate 45 mcg/actuation inhalation lorazepam 0.5 mg PO BEDTIME PRN 90 days Tobacco use date assessed: 09/11/23 Dental Screening Dental Screen Date: 09/11/23 Did you have a dental visit in the last 12 months?: Yes Did you have a dental problem in the last 6 months where you did not have access to dental care?: No Was dental information given to patient?: Patient has dentist HPI 3 month follow up HPI Details Patient came for follow-up today Blood pressure is elevated, I increased her amlodipine to 10 mg last visit Patient says that she did took it last night however she has been missing doses She is checking her blood pressure at work and it usually runs below 140 systolic she tells me Her mother is in longterm now she was just placed this week Patient has been under stress because of that as well Mother has bone cancer Has not call therapist yet, [place] therapist was [place] But she will call and book the appointment Meanwhile she is taking lorazepam as needed, she still have 1 refill sent Labs done recently reviewed LDL is 140, patient has modified her diet and trying to lose weight Arthritic pain is controlled with ibuprofen only as needed Asthma is stable Calcium level was normal Follow-up 3 months, labs are needed before visit [facility] Medical History De Quervain's tenosynovitis, left Social History Housing: House Patient Tobacco Use Status: Never used Tobacco e-Cigarette/Vaping Use: Never Used Current occupational status: employed 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 How often do you have a drink containing alcohol?: Never 3. How often do you have six or more drinks on one occasion?: Never Total Score: 0 Score Reviewed/Action Taken: Yes NARINDER-7 AMB Questionnaire NARINDER-7 Date NARINDER - 7 assessed: 05/29/23 Source: Developed by Drs. Luis A Correia, Catie Dominguez, Paul Pollard and colleagues, with an educational john paul from [employer]. Review of Systems Const Denies chills and Denies fever(s) ENT Denies epistaxis and Denies nasal discharge Card Denies chest pain Resp Denies chest congestion, Denies cough and Denies hemoptysis GI Denies diarrhea and Denies nausea Skin/Breast Denies rash Neuro Reports no additional complaints Psych Reports no additional complaints Endo Reports no additional complaints Physical exam (Primary Care) Vital Signs: Last Vital Signs Pulse 91 09/11/23 09:44 BP 160/76 H 09/11/23 09:44 Pulse Ox 98 09/11/23 09:44 Oxygen Delivery Method Room Air 09/11/23 09:44 Tobacco/Smoking Status: Tobacco use Status Tobacco use date assessed 09/11/23 09/11/23 09:46 Patient Tobacco Use Status Never used Tobacco 09/11/23 09:46 e-Cigarette/Vaping Use Never Used 09/11/23 09:46 Thrive Assessment: Date of Thrive Assessment Date Thrive assessed 05/29/23 09/11/23 09:46 Const General: cooperative, comfortable and no acute distress Orientation/consciousness: patient oriented x3 HENMT Head: Yes normocephalic Eyes General: appearance normal, both eyes and all related structures Neck Neck: Yes supple Resp Effort & Inspection: normal respiratory effort, no cough and no stridor Cardio Rhythm: regular rhythm Heart sounds: S1 normal heart sound present and S2 normal heart sound present Skin General skin exam: turgor normal Neuro General: patient oriented x3, tone normal and moves all extremities Extrem Right lower extremity: no edema Left lower extremity: no edema Assessment and Plan Assessment & Plan (1) Hypertension, essential: Code(s): I10 - Essential (primary) hypertension (2) Depression, major, single episode, moderate: Code(s): F32.1 - Major depressive disorder, single episode, moderate (3) Difficulty sleeping: Code(s): G47.9 - Sleep disorder, unspecified (4) Irritable bowel syndrome with diarrhea: Code(s): K58.0 - Irritable bowel syndrome with diarrhea (5) Lipid disorder: Code(s): E78.9 - Disorder of lipoprotein metabolism, unspecified (6) Obesity due to excess calories: Code(s): E66.09 - Other obesity due to excess calories Qualifiers: Obesity classification: adult class 2 (BMI 35 - 39.9) Serious obesity comorbidity presence: with serious comorbidity Body mass index: BMI 38.0-38.9 Qualified Code(s): E66.01 - Morbid (severe) obesity due to excess calories; Z68.38 - Body mass index [BMI] 38.0-38.9, adult (7) Arthrosis: Code(s): M19.90 - Unspecified osteoarthritis, unspecified site (8) Stress: Code(s): F43.9 - Reaction to severe stress, unspecified (9) Vitamin D deficiency: Code(s): E55.9 - Vitamin D deficiency, unspecified Plan Patient came for follow-up today Blood pressure is elevated, I increased her amlodipine to 10 mg last visit Patient says that she did took it last night however she has been missing doses She is checking her blood pressure at work and it usually runs below 140 systolic she tells me Her mother is in longterm now she was just placed this week Patient has been under stress because of that as well Mother has bone cancer Has not call therapist yet, patient [place] therapist [place] But she will call and book the appointment Meanwhile she is taking lorazepam as needed, she still have 1 refill sent Labs done recently reviewed LDL is 140, patient has modified her diet and trying to lose weight Arthritic pain is controlled with ibuprofen only as needed Asthma is stable Calcium level was normal Follow-up 3 months, labs are needed before visit Orders: Orders Comprehensive [place]. Panel Fast Today E55.9 - Vitamin D deficiency, unspecified, E66.01 - Morbid (severe) obesity due to excess calories, E78.9 - Disorder of lipoprotein metabolism, unspecified, F32.1 - Major depressive disorder, single episode, moderate, F43.9 - Reaction to severe stress, unspecified, G47.9 - Sleep disorder, unspecified, I10 - Essential (primary) hypertension, K58.0 - Irritable bowel syndrome with diarrhea, M19.90 - Unspecified osteoarthritis, unspecified site, Z68.38 - Body mass index [BMI] 38.0-38.9, adult TSH reflex Free T4 Today E55.9 - Vitamin D deficiency, unspecified, E66.01 - Morbid (severe) obesity due to excess calories, E78.9 - Disorder of lipoprotein metabolism, unspecified, F32.1 - Major depressive disorder, single episode, moderate, F43.9 - Reaction to severe stress, unspecified, G47.9 - Sleep disorder, unspecified, I10 - Essential (primary) hypertension, K58.0 - Irritable bowel syndrome with diarrhea, M19.90 - Unspecified osteoarthritis, unspecified site, Z68.38 - Body mass index [BMI] 38.0-38.9, adult Complete Blood Count Auto Diff Today E55.9 - Vitamin D deficiency, unspecified, E66.01 - Morbid (severe) obesity due to excess calories, E78.9 - Disorder of lipoprotein metabolism, unspecified, F32.1 - Major depressive disorder, single episode, moderate, F43.9 - Reaction to severe stress, unspecified, G47.9 - Sleep disorder, unspecified, I10 - Essential (primary) hypertension, K58.0 - Irritable bowel syndrome with diarrhea, M19.90 - Unspecified osteoarthritis, unspecified site, Z68.38 - Body mass index [BMI] 38.0-38.9, adult Lipid Panel Today E55.9 - Vitamin D deficiency, unspecified, E66.01 - Morbid (severe) obesity due to excess calories, E78.9 - Disorder of lipoprotein metabolism, unspecified, F32.1 - Major depressive disorder, single episode, moderate, F43.9 - Reaction to severe stress, unspecified, G47.9 - Sleep disorder, unspecified, I10 - Essential (primary) hypertension, K58.0 - Irritable bowel syndrome with diarrhea, M19.90 - Unspecified osteoarthritis, unspecified site, Z68.38 - Body mass index [BMI] 38.0-38.9, adult Vitamin D 25-OH (D2 and D3) Today E55.9 - Vitamin D deficiency, unspecified, E66.01 - Morbid (severe) obesity due to excess calories, E78.9 - Disorder of lipoprotein metabolism, unspecified, F32.1 - Major depressive disorder, single episode, moderate, F43.9 - Reaction to severe stress, unspecified, G47.9 - Sleep disorder, unspecified, I10 - Essential (primary) hypertension, K58.0 - Irritable bowel syndrome with diarrhea, M19.90 - Unspecified osteoarthritis, unspecified site, Z68.38 - Body mass index [BMI] 38.0-38.9, adult Coding Level of Care Code Est Pt Level 4 (92510) Complex EM visit Add On G2211 Diagnoses Hypertension, essential I10 Depression, major, single episode, moderate F32.1 Difficulty sleeping G47.9 Irritable bowel syndrome with diarrhea K58.0 Lipid disorder E78.9 Class 2 severe obesity due to excess calories with serious comorbidity and body mass index (BMI) of 38.0 to 38.9 in adult E66.01; Z68.38 Obesity classification: adult class 2 (BMI 35 - 39.9) Serious obesity comorbidity presence: with serious comorbidity Body mass index: BMI 38.0-38.9 Arthrosis M19.90 Stress F43.9 Vitamin D deficiency E55.9
== END 2023-09-11 10:31 | disposition home or self-care (01) ==
PROVIDERS: PCP Internal Medicine; Visit Provider Internal Medicine
DX: I10 Essential (primary) hypertension (principal); E66.01 Morbid (severe) obesity due to excess calories; F32.1 Major depressive disorder, single episode, moderate; Z68.38 Body mass index [BMI] 38.0-38.9, adult; G47.9 Sleep disorder, unspecified; K58.0 Irritable bowel syndrome with diarrhea; E78.9 Disorder of lipoprotein metabolism, unspecified; M19.90 Unspecified osteoarthritis, unspecified site; F43.9 Reaction to severe stress, unspecified; E55.9 Vitamin D deficiency, unspecified
CPT/HCPCS: 99214; G2211

== ENCOUNTER 2023-10-26 15:49 | Outpatient (REF) | payer OTHER, SELFPAY | END 2023-10-26 15:50 | disposition home or self-care (01) | LOC: HO.MAMMO 15:49 | PROVIDERS: PCP Internal Medicine; Visit Provider Pediatrics | DX: Z12.31 Encounter for screening mammogram for malignant neoplasm of breast (principal) | CPT/HCPCS: 77063; 77067 ==

== ENCOUNTER → 2023-10-26 16:00 | Outpatient (BNV) | payer OTHER, SELFPAY | PROVIDERS: PCP Internal Medicine; Visit Provider Radiology Diagnostic Radiology | DX: Z12.31 Encounter for screening mammogram for malignant neoplasm of breast (principal) | CPT/HCPCS: 77063; 77067 ==

== ENCOUNTER 2024-01-29 10:12 | Outpatient (AMB) | payer OTHER, SELFPAY ==
[2024-01-29 10:14] VITALS: BP 146/78; PULSE 75; O2SAT 98; BMI 38.0
--- NOTE | 2024-01-29 10:14 | A.OFFPC_ITS ---
Vital Signs 01/29/24 10:14 Height 5 ft 1 in Weight 201 lb 6 oz BMI 38.0 BP 146/78 H Blood Pressure Location Rt brachial Position Sitting Pulse 75 Pulse Source Pulse Oximeter Pulse Oximetry (%) 98 Oxygen Delivery Method Room Air Intake Visit Reasons: Follow up reschedule Allergies azithromycin [AZITHROMYCIN] Allergy (Intermediate, Verified 01/29/24 10:14) Hives clarithromycin [From Biaxin] Allergy (Intermediate, Verified 01/29/24 10:14) Nightmare, Rash erythromycin base Allergy (Intermediate, Verified 01/29/24 10:14) Nausea Sulfa (Sulfonamide Antibiotics) Allergy (Intermediate, Verified 01/29/24 10:14) Rash sulfamethoxazole [From Bactrim] Allergy (Intermediate, Verified 01/29/24 10:14) Hives trimethoprim [From Bactrim] Allergy (Intermediate, Verified 01/29/24 10:14) Hives adhesive Allergy (Mild, Verified 01/29/24 10:14) Rash Medication List - Last Reconciled 01/29/24 by Radha Horton MD amlodipine 10 mg PO DAILY 90 days cholecalciferol (vitamin D3) 1,250 mcg PO QWEEK 3 months ibuprofen 600 mg PO TID levalbuterol tartrate 45 mcg/actuation inhalation lorazepam 0.5 mg PO BEDTIME PRN 90 days Tobacco use date assessed: 01/29/24 Dental Screening Dental Screen Date: 01/29/24 Did you have a dental visit in the last 12 months?: Yes Did you have a dental problem in the last 6 months where you did not have access to dental care?: No Was dental information given to patient?: Patient has dentist HPI Follow up reschedule HPI Details Patient is a 58-year-old female came in today for her follow-up appointment Patient's mom few months ago She was very upset when she came in last time I prescribed lorazepam which did help her sleep better She is requesting another script she is only taking it if needed We tried to get her set up with a therapist but so far no luck She will call her insurance company for the list of therapist and will call them herself Patient had varicose veins and had procedure done April of last year She continued to feel tired when she is standing For that reason I am stopping amlodipine 10 mg her blood pressure is not controlled on that anyway Losartan 25 mg sent, patient is to monitor her blood pressure daily and give me a call in 7 days Lab order needed to be done fasting Continue vitamin-D supplement LDL was 140 last set of lab, patient says that she has done dietary changes. 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 Cognitive needs: No Hearing needs: No Vision needs: Yes Questionnaire Thrive Questionnaire Date Thrive assessed: 01/29/24 I am a: Patient What is your living situation today?: I have a steady place to live Within the past 12 months, did the food you bought not last and you didn't have the money to get more?: Never true Within the past 12 months, did you worry whether your food would run out before you got money to buy more?: Never true Do you have trouble paying for medicines?: No Do you have trouble getting transportation to medical appointments?: No Do you have trouble paying your heating and electricity bill?: No Do you have trouble taking care of your child, family member or friend?: No Do you have trouble with day-to-day activities such as bathing, preparing meals, shopping, managing finances, etc.?: No Are you currently unemployed and looking for a job?: No Are you interested in more education?: No Please select the resources that you would like help with: None Currently or been in a relationship where the following occur: No concerns reported THRIVE Score: 0 AUDIT C Alcohol Use Questionnaire (AUDIT-C) 1. How often do you have a drink containing alcohol?: Monthly or less 2. How many drinks containing alcohol do you have on a typical day when you are drinking?: 1 or 2 3. How often do you have six or more drinks on one occasion?: Never Total Score: 1 Score Reviewed/Action Taken: Yes NARINDER-7 AMB Questionnaire NARINDER-7 Date NARINDER - 7 assessed: 01/29/24 Feeling nervous, anxious, or on edge: 1 = Several days Not being able to stop or control worryin = Several days Worrying too much about different things: 1 = Several days Trouble relaxin = Not at all Being so restless that it is hard to sit still: 0 = Not at all Becoming easily annoyed or irritable: 0 = Not at all Feeling afraid as if something awful might happen: 0 = Not at all Total NARINDER-7 score (0-4 normal; 5-9 mild; 10-14 moderate; 15-21 severe): 3 Source: Developed by Drs. Luis A Correia, Catie Dominguez, Paul Pollard and colleagues, with an educational john paul from [employer]. NARINDER-7 Assessment Billing NARINDER-7 Assessment Tool: NARINDER-7 Assessment 37093 Review of Systems Const Denies chills and Denies fever(s) ENT Denies epistaxis and Denies nasal discharge Card Denies chest pain Resp Denies chest congestion, Denies cough and Denies hemoptysis GI Denies diarrhea and Denies nausea Skin/Breast Denies rash Neuro Reports no additional complaints Psych Reports no additional complaints Endo Reports no additional complaints Physical exam (Primary Care) Vital Signs: Last Vital Signs Pulse 75 01/29/24 10:14 BP 146/78 H 01/29/24 10:14 Pulse Ox 98 01/29/24 10:14 Oxygen Delivery Method Room Air 01/29/24 10:14 BMI result Body Mass Index 38.0 Tobacco/Smoking Status: Tobacco use Status Tobacco use date assessed 01/29/24 01/29/24 10:15 Patient Tobacco Use Status Never used Tobacco 01/29/24 10:15 e-Cigarette/Vaping Use Never Used 01/29/24 10:15 Thrive Assessment: Date of Thrive Assessment Date Thrive assessed 01/29/24 01/29/24 10:20 Currently or been in a relationship where the following occur: No concerns reported Const General: cooperative, comfortable and no acute distress Orientation/consciousness: patient oriented x3 [facility] Head: Yes normocephalic Eyes General: appearance normal, both eyes and all related structures Neck Neck: Yes supple Resp Effort & Inspection: normal respiratory effort, no cough and no stridor Cardio Rhythm: regular rhythm Heart sounds: S1 normal heart sound present and S2 normal heart sound present Skin General skin exam: turgor normal Neuro General: patient oriented x3, tone normal and moves all extremities Extrem Right lower extremity: no edema Left lower extremity: no edema Assessment and Plan Assessment & Plan (1) Hypertension, essential: Code(s): I10 - Essential (primary) hypertension (2) Depression, major, single episode, moderate: Code(s): F32.1 - Major depressive disorder, single episode, moderate (3) Difficulty sleeping: Code(s): G47.9 - Sleep disorder, unspecified (4) Irritable bowel syndrome with diarrhea: Code(s): K58.0 - Irritable bowel syndrome with diarrhea (5) Lipid disorder: Code(s): E78.9 - Disorder of lipoprotein metabolism, unspecified (6) Obesity due to excess calories: Code(s): E66.09 - Other obesity due to excess calories Qualifiers: Body mass index: BMI 38.0-38.9 Obesity classification: adult class 2 (BMI 35 - 39.9) Serious obesity comorbidity presence: with serious comorbidity Qualified Code(s): E66.01 - Morbid (severe) obesity due to excess calories; Z68.38 - Body mass index [BMI] 38.0-38.9, adult (7) Stress: Code(s): F43.9 - Reaction to severe stress, unspecified (8) Vitamin D deficiency: Code(s): E55.9 - Vitamin D deficiency, unspecified Plan Patient is a 58-year-old female came in today for her follow-up appointment Patient's mom few months ago She was very upset when she came in last time I prescribed lorazepam which did help her sleep better She is requesting another script she is only taking it if needed We tried to get her set up with a therapist but so far no luck She will call her insurance company for the list of therapist and will call them herself Patient had varicose veins and had procedure done April of last year She continued to feel tired when she is standing For that reason I am stopping amlodipine 10 mg her blood pressure is not controlled on that anyway Losartan 25 mg sent, patient is to monitor her blood pressure daily and give me a call in 7 days Lab order needed to be done fasting Continue vitamin-D supplement LDL was 140 last set of lab, patient says that she has done dietary changes. Follow-up 4 months Orders: Orders Complete Blood Count Auto Diff Today E55.9 - Vitamin D deficiency, unspecified, E78.9 - Disorder of lipoprotein metabolism, unspecified, F32.1 - Major depressive disorder, single episode, moderate, I10 - Essential (primary) hypertension, K58.0 - Irritable bowel syndrome with diarrhea Lipid Panel Today E55.9 - Vitamin D deficiency, unspecified, E78.9 - Disorder of lipoprotein metabolism, unspecified, F32.1 - Major depressive disorder, single episode, moderate, I10 - Essential (primary) hypertension, K58.0 - Irritable bowel syndrome with diarrhea Comprehensive [place]. Panel Fast Today E55.9 - Vitamin D deficiency, unspecified, E78.9 - Disorder of lipoprotein metabolism, unspecified, F32.1 - Major depressive disorder, single episode, moderate, I10 - Essential (primary) hypertension, K58.0 - Irritable bowel syndrome with diarrhea Vitamin D 25-OH (D2 and D3) Today E55.9 - Vitamin D deficiency, unspecified, E78.9 - Disorder of lipoprotein metabolism, unspecified, F32.1 - Major depressive disorder, single episode, moderate, I10 - Essential (primary) hypertension, K58.0 - Irritable bowel syndrome with diarrhea Medications: New losartan 25 mg PO DAILY 90 tabs 0RF Changed From lorazepam 0.5 mg PO BEDTIME 90 days PRN 60 tabs 0RF sleep To lorazepam 0.5 mg PO BEDTIME 30 days PRN 30 tabs 0RF sleep Discontinued amlodipine Discontinued Reason: Doctor's Order 10 mg PO DAILY 90 days 90 tabs 0RF Coding Level of Care Code Est Pt Level 4 (09361) Diagnoses Hypertension, essential I10 Depression, major, single episode, moderate F32.1 Difficulty sleeping G47.9 Irritable bowel syndrome with diarrhea K58.0 Lipid disorder E78.9 Class 2 severe obesity due to excess calories with serious comorbidity and body mass index (BMI) of 38.0 to 38.9 in adult E66.01; Z68.38 Body mass index: BMI 38.0-38.9 Obesity classification: adult class 2 (BMI 35 - 39.9) Serious obesity comorbidity presence: with serious comorbidity Stress F43.9 Vitamin D deficiency E55.9 Additional Codes NARINDER-7 Assessment Billing - NARINDER-7 Assessment Tool: NARINDER-7 Assessment [id number] ([id number])
== END 2024-01-29 10:53 | disposition home or self-care (01) ==
PROVIDERS: PCP Internal Medicine; Visit Provider Internal Medicine
DX: I10 Essential (primary) hypertension (principal); F32.1 Major depressive disorder, single episode, moderate; E66.01 Morbid (severe) obesity due to excess calories; Z68.38 Body mass index [BMI] 38.0-38.9, adult; G47.9 Sleep disorder, unspecified; F43.9 Reaction to severe stress, unspecified; K58.0 Irritable bowel syndrome with diarrhea; E78.9 Disorder of lipoprotein metabolism, unspecified; E55.9 Vitamin D deficiency, unspecified

== ENCOUNTER → 2024-01-29 10:12 | Outpatient (BNVA) | payer OTHER, SELFPAY | PROVIDERS: PCP Internal Medicine; Visit Provider Internal Medicine | DX: I10 Essential (primary) hypertension (principal); F32.1 Major depressive disorder, single episode, moderate; G47.9 Sleep disorder, unspecified; K58.0 Irritable bowel syndrome with diarrhea; E78.9 Disorder of lipoprotein metabolism, unspecified; E66.01 Morbid (severe) obesity due to excess calories; Z68.38 Body mass index [BMI] 38.0-38.9, adult; F43.9 Reaction to severe stress, unspecified; E55.9 Vitamin D deficiency, unspecified; Z79.899 Other long term (current) drug therapy | CPT/HCPCS: 96127 ==

== ENCOUNTER 2024-06-03 09:08 | Outpatient (AMB) | payer OTHER, SELFPAY ==
[2024-06-03 09:15] VITALS: BP 152/88; PULSE 90; O2SAT 98; BMI 38.6
--- NOTE | 2024-06-03 09:15 | A.OFFPC_ITS ---
Vital Signs 06/03/24 09:15 Height 5 ft 1 in Weight 204 lb 8 oz BMI 38.6 BP 152/88 H Blood Pressure Location Rt brachial Position Sitting Pulse 90 Pulse Source Pulse Oximeter Pulse Oximetry (%) 98 Oxygen Delivery Method Room Air Intake Visit Reasons: right side pain, high bp Allergies azithromycin [AZITHROMYCIN] Allergy (Intermediate, Verified 06/03/24 09:17) Hives clarithromycin [From Biaxin] Allergy (Intermediate, Verified 06/03/24 09:17) Nightmare, Rash erythromycin base Allergy (Intermediate, Verified 06/03/24 09:17) Nausea Sulfa (Sulfonamide Antibiotics) Allergy (Intermediate, Verified 06/03/24 09:17) Rash sulfamethoxazole [From Bactrim] Allergy (Intermediate, Verified 06/03/24 09:17) Hives trimethoprim [From Bactrim] Allergy (Intermediate, Verified 06/03/24 09:17) Hives adhesive Allergy (Mild, Verified 06/03/24 09:17) Rash Medication List - Last Reconciled 06/03/24 by Radha Horton MD cholecalciferol (vitamin D3) 1,250 mcg PO QWEEK 3 months levalbuterol tartrate 45 mcg/actuation inhalation lorazepam 0.5 mg PO BEDTIME PRN 30 days losartan 25 mg PO DAILY Tobacco use date assessed: 06/03/24 Dental Screening Dental Screen Date: 06/03/24 Did you have a dental visit in the last 12 months?: Yes Did you have a dental problem in the last 6 months where you did not have access to dental care?: No Was dental information given to patient?: Patient has dentist HPI right side pain, high bp HPI Details - The patient is a 58-year-old female pr esenting with right groin pain. - This issue started after an active wor k and escalated by Thursday, rendering the pain severe. - Exam by a extract mixer revealed no sig nificant findings; suspicion of gynecological causes is minimal. However still ultrasound was ordered by the gynecology - Current working diagnosis is muscle or tendon inflammation, potentially secondary to overuse or strain, with no signs of hernia observed. - Temporary relief strategies have been attempted using Tylenol , with ongoing right groin tenderness impacting mobility and daily function. - Essential Hypertension, noted in her h istory, exhibited elevated blood pressure correlating with pain severity. Problem List - Right Groin Pain - Essential Hypertension Patient Instructions - Take the prescribed medication diclofe nac 75 mg, twice daily with food to avoid stomach irritation. - Avoid strenuous activities and limit w alking to allow the area to rest. - Attend the physical examination schedu led for June 17 for follow-up. - Consider taking sick days if needed to reduce activity and aid recovery. 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 - Cardiovascular: Reports episodes of el evated blood pressure during pain crises. 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 1. Little interest or pleasure in doing things: not at all 2. Feeling down, depressed, or hopeless: not at all 3. Trouble falling or staying asleep, or sleeping too much: several days 4. Feeling tired or having little energy: not at all 5. Poor appetite or overeating: not at all 6. Feeling bad about yourself - or that you are a failure or have let yourself or your family down: not at all 7. Trouble concentrating on things, such as reading the newspaper or watching television: not at all 8. Moving or speaking so slowly that other people could have noticed. Or the opposite - being so fidgety or restless that you have been moving around a lot more than usual: not at all 9. Thoughts that you would be better off or of hurting yourself in some way: not at all Total score: 1 Depression Screening Interpretation: Negative Depression Screening Done: Yes 47698 - PHQ-9 Billing: Yes Source: Developed by Drs. Luis A Correia, Catie Dominguez, Paul Pollard and colleagues, with an educational john paul from [employer]. Thrive Questionnaire Date Thrive assessed: 06/03/24 I am a: Patient What is your living situation today?: I have a steady place to live Within the past 12 months, did the food you bought not last and you didn't have the money to get more?: Never true Within the past 12 months, did you worry whether your food would run out before you got money to buy more?: Never true Do you have trouble paying for medicines?: No Do you have trouble getting transportation to medical appointments?: No Do you have trouble paying your heating and electricity bill?: No Do you have trouble taking care of your child, family member or friend?: No Do you have trouble with day-to-day activities such as bathing, preparing meals, shopping, managing finances, etc.?: No Are you currently unemployed and looking for a job?: No Are you interested in more education?: No Please select the resources that you would like help with: None Currently or been in a relationship where the following occur: No concerns repo rted THRIVE Score: 0 AUDIT C Alcohol Use Questionnaire (AUDIT-C) 1. How often do you have a drink containing alcohol?: Monthly or less 2. How many drinks containing alcohol do you have on a typical day when you are drinking?: 1 or 2 3. How often do you have six or more drinks on one occasion?: Never Total Score: 1 Score Reviewed/Action Taken: Yes NARINDER-7 AMB Questionnaire NARINDER-7 Date NARINDER - 7 assessed: 06/03/24 Feeling nervous, anxious, or on edge: 0 = Not at all Not being able to stop or control worryin = Not at all Worrying too much about different things: 1 = Several days Trouble relaxin = Not at all Being so restless that it is hard to sit still: 0 = Not at all Becoming easily annoyed or irritable: 0 = Not at all Feeling afraid as if something awful might happen: 0 = Not at all Total NARINDER-7 score (0-4 normal; 5-9 mild; 10-14 moderate; 15-21 severe): 1 Source: Developed by Drs. Luis A Correia, Catie Dominguez, Paul Pollard and colleagues, with an educational john paul from [employer]. NARINDER-7 Assessment Billing NARINDER-7 Assessment Tool: NARINDER-7 Assessment 21327 Physical exam (Primary Care) Vital Signs: Last Vital Signs Pulse 90 06/03/24 09:15 BP 152/88 H 06/03/24 09:15 Pulse Ox 98 06/03/24 09:15 Oxygen Delivery Method Room Air 06/03/24 09:15 BMI result Body Mass Index 38.6 Tobacco/Smoking Status: Tobacco use Status Tobacco use date assessed 06/03/24 06/03/24 09:18 Patient Tobacco Use Status Never used Tobacco 06/03/24 09:18 e-Cigarette/Vaping Use Never Used 06/03/24 09:18 PHQ-9: PHQ-9 Score PHQ-9: Total score 1 06/03/24 09:18 Depression Screening Interpretation: Negative Thrive Assessment: Date of Thrive Assessment Date Thrive assessed 06/03/24 06/03/24 09:18 Currently or been in a relationship where the following occur: No concerns reported Coding Level of Care Code Est Pt Level 3 (54513) Diagnoses Strain of right psoas muscle, initial encounter S76.011A Encounter type: initial encounter Laterality: right Additional Codes NARINDER-7 Assessment Billing - NARINDER-7 Assessment Tool: NARINDER-7 Assessment 50216 ([id number]) PHQ-9 - 80227 - PHQ-9 Billing: Yes ([id number]) Assessment & Plan Assessment & Plan (1) Psoas muscle strain: Code(s): S76.019A - Strain of muscle, fascia and tendon of unspecified hip, initial encounter Category: Medical Qualifiers: Encounter type: initial encounter Laterality: right Qualified Code(s): S76.011A - Strain of muscle, fascia and tendon of right hip, initial encounter Plan - The patient is a 58-year-old female presenting with right groin pain. - This issue started after an active work weekend and escalated by Thursday, rendering the pain severe. - Exam by a extract mixer revealed no significant findings; suspicion of gynecological causes is minimal. However still ultrasound was ordered by the gynecology - Current working diagnosis is muscle or tendon inflammation, potentially secondary to overuse or strain, with no signs of hernia observed. - Temporary relief strategies have been attempted using Tylenol , with ongoing right groin tenderness impacting mobility and daily function. - Essential Hypertension, noted in her history, exhibited elevated blood pressure correlating with pain severity. Problem List - Right Groin Pain - Essential Hypertension Patient Instructions - Take the prescribed medication diclofenac 75 mg, twice daily with food to avoid stomach irritation. - Avoid strenuous activities and limit walking to allow the area to rest. - Attend the physical examination scheduled for June 17 for follow-up. - Consider taking sick days if needed to reduce activity and aid recovery. 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
== END 2024-06-03 09:53 | disposition home or self-care (01) ==
PROVIDERS: PCP Internal Medicine; Visit Provider Internal Medicine
DX: S76.011A Strain of muscle, fascia and tendon of right hip, initial encounter (principal)

== ENCOUNTER → 2024-06-03 09:08 | Outpatient (BNVA) | payer OTHER, SELFPAY | PROVIDERS: PCP Internal Medicine; Visit Provider Internal Medicine | DX: S76.011A Strain of muscle, fascia and tendon of right hip, initial encounter (principal); I10 Essential (primary) hypertension; X58.XXXA Exposure to other specified factors, initial encounter; Y93.9 Activity, unspecified; Y92.9 Unspecified place or not applicable; Y99.9 Unspecified external cause status | CPT/HCPCS: 96127 ==

== ENCOUNTER 2024-06-17 06:08 | Outpatient (REF) | payer OTHER, SELFPAY ==
--- OUTSIDE RECORDS SUMMARY | 2024-06-17 06:10 | XMS_ITS ---
Author Organization [facility] Address [address] [address] Care Team Providers Care Dust Operator Name Role Phone PEYTON MILLER Unavailable [phone] Allergies Allergen (clinical drug ingredient) Drug/Non Drug Allergy documented on EMR Reaction Allergy Type Onset Date Status Bactrim Hives Drug Allergy Active Biaxin Rash/Nightmares Drug Allergy A ctive Erythromycin GI/Stomach Pain Drug Allergy Active Adhesive blisters Allergy Active REASON FOR VISIT Annual SEXER Physical Medications Medication SIG (Take, Route, Frequency, Duration) Notes Start Date End Date Status Estradiol 0.1 MG/GM 1 gram Vaginal Two t imes a Week for 90 days 12/11/2020 Not-Taking LORazepam 0.5 MG (Schedule IV Drug) T TIMUR 1 TABLET BY MOUTH EVERY 8 HOURS NEEDED FOR ANXIETY Oral for 6 Active Sertraline HCl 25 MG TAKE 1 TABLET BY [facility] DAILY Oral for 30 Not-Taking Albuterol Sulfate HFA 108 (90 Base) MCG/ACT INHALE 2 PUFFS INTO THE LUNGS EVERY 4 HOURS NEEDED FOR COUGH OR WHEEZING OR SHORTNESS OF BREATH Inhalation for 16 Active amLODIPine Besylate 10 MG Oral for 90 Days Active Social History Tobacco Use: Social History Observation Description Date Details (start date - stop date) Never Smoker NA - NA Tobacco Use/Smoking Question Answer Notes Are you a nonsmoker Alcohol Screen (Audit-C) Question Answer Notes Did you have a drink contain ing alcohol in the past year? Yes How often did you have a dri nk containing alcohol in the past year? Monthly or less (1 point) How many drinks did you have on a typical day when you were drinking in the past year? 1 or 2 drinks (0 point) How often did you have 6 or more drinks on one occasion in the past year? Never (0 point) Points 1 Interpretation Negative Tobacco use other than smoking: Question Answer Notes Are you an other tobacco user? No Vital Signs Temperature 96.9 degrees Fahrenheit 06/19/19 24 Blood pressure systolic 128 mm Hg 06/19/19 24 Blood pressure diastolic 76 mm Hg 024 Height 61 in 06/19/2023 Weight 199 lbs 06/19/2023 BMI 37.6 kg/m2 06/19/2023 Encounters Encounter Location Date Provider Diagnosis [address] [place] [address] 06/19/2023 PEYTON MILLER Encounter for gynecological examination (general) (routine) without abnormal findings Z01.419 ; Encounter for screening mammogram for malignant neoplasm of breast Z12.31 and Personal history of malignant neoplasm of cervix uteri Z85.41 Assessments Encounter Date Diagnosis (ICD Code) Assessment Notes Treatment Notes Treatment Clinical Notes Section Notes 06/19/2023 Encounter for gynecological examination (general) (routine) without abnormal findings (ICD-10 - Z01.419) During the visit, the following areas of concern were addressed: Discussed cervical cancer screening with either cytology alone every 3 years or high risk HPV co-testing every 5 years as per ASCCP guidelines. Advised continued annual pelvic exams. Patient encouraged to increase her level of exercise. SBE technique encouraged/taught. Patient reminded when annual mammogram is due. Patient encouraged to keep colon screening up to date. 06/19/2023 Encounter for screening mammogram for malignant neoplasm of breast (ICD-10 - Z12.31) 06/19/2023 Personal history of malignant neoplasm of cervix uteri (ICD-10 - Z85.41) Per UpToDate - Cervicovaginal cytology - For women who have undergone RT, we do not perform cervicovaginal cytology routinely as part of surveillance because it is rarely helpful. However, for those patients who did not undergo RT (eg, those treated with primary hysterectomy for very early disease), annual cervical cytology should be performed [26]. In the Cancer [facility] systematic review, a median of 6 percent (range, 0 to 16 percent) of asymptomatic recurrences were diagnosed based upon vaginal vault cytology [15]. It is possible that in patients who received RT, the accuracy of cervicovaginal cytology may be compromised by anatomic and tissue changes from RT, which lends more rationale not to obtain it. Plan Of Treatment Treatment Notes Assessment Notes Encounter for gynecological examination (general) (routine) without abnormal findings During the visit, the following areas of concern were addressed: Discussed cervical cancer screening with either cytology alone every 3 years or high risk HPV co-testing every 5 years as per ASCCP guidelines. Advised continued annual pelvic exams. Patient encouraged to increase her level of exercise. SBE technique encouraged/taught. Patient reminded when annual mammogram is due. Patient encouraged to keep colon screening up to date. Personal history of malignan t neoplasm of cervix uteri Per UpToDate - Cervicovaginal cytology - For women who have undergone RT, we do not perform cervicovaginal cytology routinely as part of surveillance because it is rarely helpful. However, for those patients who did not undergo RT (eg, those treated with primary hysterectomy for very early disease), annual cervical cytology should be performed [26]. In the Cancer [facility] systematic review, a median of 6 percent (range, 0 to 16 percent) of asymptomatic recurrences were diagnosed based upon vaginal vault cytology [15]. It is possible that in patients who received RT, the accuracy of cervicovaginal cytology may be compromised by anatomic and tissue changes from RT, which lends more rationale not to obtain it. Pending Test Test Name Order Date MM Digital Screening Mammogram 3D 2023 Next Appt Details Follow Up: 1 Year, Reason: Y early Control Chemist Exam Provider Name:PEYTON Nagy, 07/07/2024 10:00:00 AM, [address] [facility], [address], [place], [address], Progress Notes * GENIA STONEGAILOB:[birth year] (57 yo F)Acc No.[id number]:06/19/2023 PROGRESS NOTES Patient:?KIERA STONE Provider:?PEYTON MILLER MD :1965???Age:57 Y???Sex:Female D ate:06/19/2023 Address:[address] [place] [address] Subjective: * Chief Complaints: * ???Annual SEXER Physical * HPI: ???Constitutional:? 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 Planning on a [place] Cruise to celebrate. ? She has been in state of good health since her last exam. She has the following concerns: nocturia 1-2x per night - tends to drink tea or coffee in the evening. ? She has received the [employer] Covid-19 vaccine and boosters. ? Relationship status: for 34 years. She is not sexually active, but has intimate time. Sexual partner(s): male. She does not wish to have STI testing. ? She does report vaginal dryness. She does rarely have hot flashes/night sweats. ? The patient has not had an abnormal pap smear within the last 5 years. Her most recent pap smear was 11/15/19 - NIL, neg HR HPV. Per UpToDate, paps are no longer indicated. ? She has not been diagnosed with breast cancer. She does have a family history of breast cancer - mother in her 70's. Her last mammogram was 03/21/22 - done at [facility] for a palpable lump - found to be a cyst. She reports that she went recently - April or May. Normal letter sent to Kiera. ? She does not have a family history of colon cancer. She a has had a colonoscopy. The last colonoscopy was 01/2022. ? The patient does exercise. She exercises x 3-4 days/week by walking. She also walks a lot at work. She does not strength train. * ROS:?Annual Control Chemist Exam ROS:?Bowel habit changes?denies.?Bladder symptoms?denies.?Vaginal discharge, unusual?denies.?Vaginal itch or odor?denies.?weight or appetite changes?denies.?Chest pains, SOB?denies.?depression? admits, especially related to mom's illness, denies HI/SI - working on a therapist.?Breast:?Denies?Breast lump.?Denies?Nipple discharge.?Hematology:?Denies?Swollen glands.?Skin:?Patient denies?changing moles.?Psychiatric:?Denies?Anxiety.? * Medical History:? * Control Chemist History:?/ Para?0/0.?Sexual activity?not currently sexually active.?Last Pap Smear:?11/15/19 NIL, NEG HPV, 2019.?Mammogram:?05/2022, 03/21/22 < 50% density, 2020 per pt, 2019.?Abnormal Pap Smear:?2008.?LMP and menses?[place].?History of STD's:?none.?Menarche?11.?Colonoscopy?01/2022, 2016 q 5 years due to polyp.? * OB History:?Total pregnancies?0.? * Surgical History:?[facility] Biops y 2007D+C 2010[place] [facility] 1986Radiation for Cervical Cancer 2007Vein stripping right leg and vein ablation 04/2023 * Hospitalization/Major Diagno stic Procedure:?See surgical hx * Family History:?Mother: avani dougherty 86 yrs, Breast Cancer at age 72, recurred in 08/2022 (mets to bone - left hip and thigh, now Stage IV), Melanoma, Heart Attack; Dementia.?Father: 71 yrs, Heart Attack.? Half brother - Jonas - 05/12/81 - liver hemangioma No family history of colon, ovarian, uterine cancers. * Social History:?Tobacco Use:?Tobacco Use/Smoking?Are you a?nonsmoker ?Tobacco use other than smoking?Are you an other tobacco user??No ???Drugs/Alcohol:?Drugs?Have you used drugs other than those for medical reasons in the past 12 months??No ?Alcohol Screen (Audit-C)?Did you have a drink containing alcohol in the past year??Yes ?How often did you have a drink containing alcohol in the past year??Monthly or less (1 point) ?How many drinks did you have on a typical day when you were drinking in the past year??1 or 2 drinks (0 point) ?How often did you have 6 or more drinks on one occasion in the past year??Never (0 point) ?Points?1 ?Interpretation?Negative ???Miscellaneous:?no Children. ?no Domestic violence. ?Exercise: yes, walking, gym. ?Home smoke detector use: yes, smoke detectors, carbon monoxide detector. ?Housing: owns a home. ?Living with: spouse. ?Marital status: , Juan J. ?Natural support system: yes. ?Occupation: [employer]. ?Pets: dogs: 3. ?no Sexual abuse. ?no Sexually active, monogamous relationship. ?no Verbal abuse. * Medications:?TakingAlbuterol Sulfate HFA 108 (90 Base) MCG/ACT Aerosol Solution INHALE 2 PUFFS INTO THE LUNGS EVERY 4 HOURS NEEDED FOR COUGH OR WHEEZING OR SHORTNESS OF BREATH Inhalation LORazepam 0.5 MG Tablet (Schedule IV Drug) TAKE 1 TABLET BY MOUTH EVERY 8 HOURS NEEDED FOR ANXIETY Oral amLODIPine Besylate 10 MG Tablet Oral Taking Albuterol Sulfate HFA 108 (90 Base) MCG/ACT Aerosol Solution INHALE 2 PUFFS INTO THE LUNGS EVERY 4 HOURS NEEDED FOR COUGH OR WHEEZING OR SHORTNESS OF BREATH Inhalation Taking LORazepam 0.5 MG Tablet (Schedule IV Drug) TAKE 1 TABLET BY MOUTH EVERY 8 HOURS NEEDED FOR ANXIETY Oral Taking amLODIPine Besylate 10 MG Tablet Oral Not-TakingSertraline HCl 25 MG Tablet TAKE 1 TABLET BY MOUTH DAILY Oral Estradiol 0.1 MG/GM Cream 1 gram Vaginal Two times a WeekNot-Taking Sertraline HCl 25 MG Tablet TAKE 1 TABLET BY MOUTH DAILY Oral Not-Taking Estradiol 0.1 MG/GM Cream 1 gram Vaginal Two times a WeekDiscontinuedLosartan Potassium 50 MG Tablet TAKE 1 TABLET BY MOUTH DAILY Oral Discontinued Losartan Potassium 50 MG Tablet TAKE 1 TABLET BY MOUTH DAILY Oral * Allergies:?Bactrim: Hives - AllergyBiaxin: Rash/Nightmares - AllergyErythromycin: GI/Stomach Pain - AllergyAdhesive: blisters Objective: * Vitals:?Ht: 61 in, Wt:199 lb s, BMI:37.6 Index, BP:128/76 mm Hg, Temp:96.9 F. * Examination: ???General Examination: ?GENERAL APPEARANCE:?in no acute distress, well developed, well nourished, assembler metal furniture present in room.?HEAD:?normocephalic, atraumatic.?NECK/THYROID:?neck supple, full range of motion, thyroid normal.?LYMPH NODES:?no axillary or supraclavicular adenopathy.?SKIN:? normal, good turgor, no rashes, no suspicious lesions.?BREASTS:? normal, no dimpling, no discharge, no drainage, no masses palpable bilaterally, nontender.?ABDOMEN:? soft, non-tender, non distended without masses or hepatosplenomegay.?RECTAL:? normal tone, no masses palpable.?BACK:? no costovertebral angle tenderness.?FEMALE GENITOURINARY:?Vulva without lesions or masses, vagina pale pink, atrophic and shortened due to radiation therapy, without abnormal discharge, lesions or masses, cervix is not visible due to vaginal scarring; uterus and ovaries not palpable.?.?NEUROLOGIC:? alert and oriented, gait normal.?PSYCH:? alert, oriented, cognitive function intact, cooperative with exam, good eye contact, mood/affect full range, speech clear.? Assessment: * Assessment: 1.?Encounter for gynecologic al examination (general) (routine) without abnormal findings - Z01.419 (Primary)?2.?Encounter for screening mammogram for malignant neoplasm of breast - Z12.31?3.?Personal history of malignant neoplasm of cervix uteri - Z85.41? Plan: * Treatment: 2.?Encounter for screening m ammogram for malignant neoplasm of breast?Imaging: MM Digital Screening Mammogram 3D 3.?Personal history of malig nant neoplasm of cervix uteri? Notes: Per UpToDate - Cervicovaginal cytology - For women who have undergone RT, we do not perform cervicovaginal cytology routinely as part of surveillance because it is rarely helpful. However, for those patients who did not undergo RT (eg, those treated with primary hysterectomy for very early disease), annual cervical cytology should be performed [26]. In the Cancer [facility] systematic review, a median of 6 percent (range, 0 to 16 percent) of asymptomatic recurrences were diagnosed based upon vaginal vault cytology [15]. It is possible that in patients who received RT, the accuracy of cervicovaginal cytology may be compromised by anatomic and tissue changes from RT, which lends more rationale not to obtain it.?? * Procedure Codes:? * Follow Up:?1 Year (Reason: Y early Control Chemist Exam) * Images: Billing Information: * Visit Code:? 13375 Preventive Care Est Pt. Age 40-64. * Procedure Codes:? 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 Planning on a [place] Cruise to celebrate. She has been in state of good health since her last exam. She has the following concerns: nocturia 1-2x per night - tends to drink tea or coffee in the evening. She has received the [employer] Covid-19 vaccine and boosters. Relationship status: for 34 years. She is not sexually active, but has intimate time. Sexual partner(s): male. She does not wish to have STI testing. She does report vaginal dryness. She does rarely have hot flashes/night sweats. The patient has not had an abnormal pap smear within the last 5 years. Her most recent pap smear was 11/15/19 - NIL, neg HR HPV. Per UpToDate, paps are no longer indicated. She has not been diagnosed with breast cancer. She does have a family history of breast cancer - mother in her 70's. Her last mammogram was 03/21/22 - done at [facility] for a palpable lump - found to be a cyst. She reports that she went recently - April or May. Normal letter sent to Kiera. She does not have a family history of colon cancer. She a has had a colonoscopy. The last colonoscopy was 01/2022. The patient does exercise. She exercises x 3-4 days/week by walking. She also walks a lot at work. She does not strength train. Examination Category Sub-Category Detail Notes Category Not es General Examination GENERAL APPEARANCE: in no ac [place] distress, well developed, well nourished, assembler metal furniture present in room HEAD: normocephalic, atrau matic NECK/THYROID: neck supple, full ra nge of motion, thyroid normal ABDOMEN: soft, non-tender, no n distended without masses or hepatosplenomegay NEUROLOGIC: alert and oriented, gait normal SKIN: normal, good turgor, no rashes, no suspicious lesions BACK: no costovertebral an gle tenderness BREASTS: normal, no dimpling, no discharge, no drainage, no masses palpable bilaterally, nontender LYMPH NODES: no axillary or supra clavicular adenopathy RECTAL: normal tone, no mass es palpable PSYCH: alert, oriented, cog nitive function intact, cooperative with exam, good eye contact, mood/affect full range, speech clear FEMALE GENITOURINARY: Vulva without lesi ons or masses, vagina pale pink, atrophic and shortened due to radiation therapy, without abnormal discharge, lesions or masses, cervix is not visible due to vaginal scarring; uterus and ovaries not palpable.
--- OUTSIDE RECORDS SUMMARY | 2024-06-17 06:10 | XMS_ITS | Patient Health Record ---
Author Organization [facility] Address [address] [address] Care Team Providers Care Insole And Outsole Splitter Name Role Phone PEYTON MILLER Unavailable [phone] Allergies Allergen (clinical drug ingredient) Drug/Non Drug Allergy documented on EMR Reaction Allergy Type Onset Date Status sulfamethoxazole / trimethoprim Bactrim Hives Drug Allergy Active Biaxin Rash/Nightmare s Drug Allergy Active erythromycin Erythromycin GI/Stomach Pain Drug Allergy Active Adhesive blisters Allergy Active Reason For Referral No Information Medications Medication SIG (Take, Route, Frequency, Duration) Notes Start Date End Date Status Losartan Potassium 25 MG 1 tablet Orally Once a day Active Albuterol Sulfate HFA 108 (90 Base) MCG/ACT INHALE 2 PUFFS INTO THE LUNGS EVERY 4 HOURS NEEDED FOR COUGH OR WHEEZING OR SHORTNESS OF BREATH Inhalation for 16 Active LORazepam 0.5 MG (Schedule IV Drug) T TIMUR 1 TABLET BY MOUTH EVERY 8 HOURS NEEDED FOR ANXIETY Oral for 6 Active Sertraline HCl 25 MG TAKE 1 TABLET BY [facility] DAILY Oral for 30 Not-Taking Estradiol 0.1 MG/GM 1 gram Vaginal Two t imes a Week for 90 days 12/11/2020 Not-Taking Social History Tobacco Use: Social History Observation [...] Are you an other tobacco user? No Problems Problem Type SNOMED Code ICD Code Onset Dates Problem Status W/U Status Risk Notes Problem Postmenopausal atrophic vaginitis (65366042) Postmenopausal atrophic vaginitis (N95.2) Active confirmed Problem History of malignant neoplasm of cervix (230073865) Personal history of malignant neoplasm of cervix uteri (Z85.41) Active confirmed Vital Signs Temperature 97.0 degrees Fahrenheit 05/31/2024 2nd BP reading 194/106 Blood pressure diastolic 110 mm Hg 05/31/2024 2nd BP reading 194/106 Height 61 in 05/31/2024 2nd BP reading 194/106 Blood pressure systolic 198 mm Hg 05/31/2024 2nd BP reading 194/106 Weight 205 lbs 05/31/2024 2nd BP reading 194/106 BMI 38.73 kg/m2 05/31/2024 2nd BP reading 194/106 Encounters Encounter Location Date Provider Diagnosis [place] [address] [address] 06/19/2023 PEYTON MILLER Encounter for gynecological examination (general) (routine) without abnormal findings Z01.419 ; Encounter for screening mammogram for malignant neoplasm of breast Z12.31 and Personal history of malignant neoplasm of cervix uteri Z85.41 [address] [address] 05/31/2024 PEYTON MILLER Pelvic Pain R10.2 [address] [address] 06/02/2024 PEYTON MILLER Assessments Encounter Date Diagnosis (ICD Code) Assessment Notes Treatment Notes Treatment Clinical Notes Section Notes 05/31/2024 Pelvic Pain (ICD-10 - R10.2) Unclear as to the source of the tugging sensation, but can check ultrasound for ovarian cysts or other ovarian pathology. 06/19/2023 Encounter for gynecological examination (general) (routine) [...] should be performed [26]. In the Cancer [facility] systematic review, a median of 6 percent (range, 0 to 16 percent) of asymptomatic recurrences were diagnosed based upon vaginal vault cytology [15]. It is possible that in patients who received RT, the accuracy of cervicovaginal cytology may be compromised by anatomic and tissue changes from RT, which lends more rationale not to obtain it. Plan Of Treatment Pending Test Test Name Order Date ULTRASOUND: PELVIC W/TRANSVAGINAL 2024 Diagnostic Left Breast Mammo/US 03/06/20 22 MM Digital Screening Mammogram 3D 2023 MM Digital Screening Mammogram 3D 2019 MM Digital Screening Mammogram 3D 2020 MM Digital Screening Mammogram 3D 2021 Next Appt Details Provider Name:PEYTON Nagy, 07/07/2024 10:00:00 AM, [address] [facility], [address], [place], [address], Insurance Providers Payer Name Payer Address Payer Phone Subscriber Number Group Number Insured Name Patient Relationship to Insured Coverage Start Date Coverage End Date [facility] [address] [place] [address] [id number] KIERA COPELAND Self - patient is the insured Medical (General) History Medical History History ICD Code Personal history of malignant neoplasm o f cervix uteri Z85.41 Pityriasis versicolor B36.0 Radiation proctitis 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
--- OUTSIDE RECORDS SUMMARY | 2024-06-17 06:11 | XMS_ITS ---
Author Organization [facility] [employer] [facility] Address [address] [place] [address] Care Team Providers Care Supervisor Pumping Station Name Role Phone PEYTON MILLER Unavailable [phone] REASON FOR VISIT Followup Encounters Encounter Location Date Provider Diagnosis [facility] [employer] [facility] [employer] [facility] [address] [place] [address] 06/02/2024 PEYTON MILLER Plan Of Treatment Next Appt Details Provider Name:PEYTON Nagy, 07/07/2024 10:00:00 AM, [address] [facility], [address], [place], [address], Progress Notes * RADHA STONEOB:[birth year] (58 yo F)Acc No.[id number]:06/02/2024 Patient:?KIERA STONE :1965???Age:58 Y???Sex:Female Address:[address] [place] [address], [address] * true * Date:? Generated for Raquel ramos/Adelina/eTransmitting on:?06/17/2024 06:10 AM EST
--- OUTSIDE RECORDS SUMMARY | 2024-06-17 06:11 | XMS_ITS ---
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 Name Role Phone PEYTON MILLER Unavailable [phone] Allergies Allergen (clinical drug ingredient) Drug/Non Drug Allergy documented on EMR Reaction Allergy Type Onset Date Status sulfamethoxazole / trimethoprim Bactrim Hives Drug Allergy Active Biaxin Rash/Nightmare s Drug Allergy Active erythromycin Erythromycin GI/Stomach Pain Drug Allergy Active Adhesive blisters Allergy Active REASON FOR VISIT RLQ PULLING SENSATION Medications Medication SIG (Take, Route, Frequency, Duration) Notes Start Date End Date Status Albuterol Sulfate HFA 108 (90 Base) MCG/ACT INHALE 2 PUFFS INTO THE LUNGS EVERY 4 HOURS NEEDED FOR COUGH OR WHEEZING OR SHORTNESS OF BREATH Inhalation for 16 Active LORazepam 0.5 MG (Schedule IV Drug) T TIMUR 1 TABLET BY MOUTH EVERY 8 HOURS NEEDED FOR ANXIETY Oral for 6 Active Sertraline HCl 25 MG TAKE 1 TABLET BY [facility] DAILY Oral for 30 Not-Taking Estradiol 0.1 MG/GM 1 gram Vaginal Two t imes a Week for 90 days 12/11/2020 Not-Taking Losartan Potassium 25 MG 1 tablet Orally Once a day Active Social History Tobacco Use: Social History [...] other tobacco user? No Vital Signs Temperature 97.0 degrees Fahrenheit 05/31/19 25 Blood pressure systolic 198 mm Hg 05/31/19 25 Blood pressure diastolic 110 mm Hg 025 Height 61 in 05/31/2024 Weight 205 lbs 05/31/2024 BMI 38.73 kg/m2 05/31/2024 2nd BP reading 194/106 Encounters Encounter Location Date Provider Diagnosis [facility] [address] [place] [address] 05/31/2024 PEYTON MILLER Pelvic Pain R10.2 Assessments Encounter Date Diagnosis (ICD Code) Assessment Notes Treatment Notes Treatment Clinical Notes Section Notes 05/31/2024 Pelvic Pain (ICD-10 - R10.2) Unclear as to the source of the tugging sensation, but can check ultrasound for ovarian cysts or other ovarian pathology. Plan Of Treatment Treatment Notes Assessment Notes Pelvic Pain Unclear as to the so urce of the tugging sensation, but can check ultrasound for ovarian cysts or other ovarian pathology. 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 female presents with c/o Pelvic Pain:?How did the pain develop:?gradually ?When did the pain start:?< a week ago ?Location of pain:?right lower quadrant ?Does pain radiate:?No ?Severity of pain:?moderate ?Pain scale (1 Mild - 10 Severe)?0 ?Pain scale at its worst (1 Mild - 10 Severe)?7 ?Quality of pain:?a tugging sensation, intermittent ?Associated signs or symptoms:?none ?Denies signs and symptoms:?abdominal distention, anorexia, chills, constipation, diarrhea, dysmenorrhea, fever, hematuria, nausea, vaginal discharge, vaginal bleeding, vomiting ?Aggravating factors:?physical activity ?Remedies tried:?acetominophen, nonsteroidal anti-inflammatory drugs (NSAIDs) ?Any relief from interventions:?some relief ?Significant past medical history:?no prior abdominal or pelvic surgery or infection, irritable bowel syndrome ; cervical cancer ? She reports similar symptoms in the past, had MRI that was normal. She notes a change in her diet, with more nuts/seeds lately. Wonders if that could be it?. * ROS:?General/Constitutional:?Patient denies?fever, weight gain, weight loss.?Gastrointestinal:?Patient denies?blood in stool, constipation, diarrhea, nausea, vomiting, decreased appetite.?Women Only:?Patient denies?painful menses, painful intercourse, new sexual partners, abnormal vaginal discharge, unprotected sex.?Genitourinary:?Patient denies?blood in the urine, painful urination, frequent urination, urinary urgency, back pain.?Musculoskeletal:?Patient denies?trauma to hip(s).?Psychiatric:?Patient denies?feelings of anxiety, feelings of depression.? * Medical History:? * Spooler History:?/ Para?0/0.?Sexual activity?not currently sexually active.?Last Pap Smear:?11/15/19 NIL, NEG HPV, 2019.?Mammogram:?2023, < 50% density, 10/22/2022 < 50% density, , 03/21/22 < 50% density, 2020 per pt, 2019.?Abnormal Pap Smear:?2008.?LMP and menses?[place].?History of STD's:?none.?Menarche?11.?Colonoscopy?01/2022, 2016 q 5 years due to polyp.? * OB History:?Total pregnancies?0.? * Surgical History:?[facility] Biops y 2007D+C 2010Wisdom Teeth 1986Radiation for Cervical Cancer 2007Vein stripping right leg and vein ablation 04/2023 * Hospitalization/Major Diagno stic Procedure:?See surgical hx * Family History:?Mother: avani dougherty 87 yrs, Breast Cancer at age 72, recurred in 08/2022 (mets to bone - left hip and thigh, now Stage IV), Melanoma, Heart Attack; Dementia.?Father: 71 yrs, Heart Attack.? Half brother - Jonas - 05/12/81 - liver hemangioma No family history of colon, ovarian, uterine cancers. * Social History:?Tobacco Use:?Tobacco Use/Smoking?Are you a?nonsmoker ?Tobacco use other than smoking?Are you an other tobacco user??No ???Sexual History:?Details of Sexual History?Are you sexually active??No ???Drugs/Alcohol:?Drugs?Have you used drugs other than those [...] the past year??Never (0 point) ?Points?1 ?Interpretation?Negative ???Miscellaneous:?Children: no. ?Domestic violence: no. ?Exercise: yes, walking, gym. ?Home smoke detector use: yes, smoke detectors, carbon monoxide detector. ?Housing: owns a home. ?Living with: spouse. ?Marital status: , Juan J. ?Natural support system: yes. ?Occupation: [employer]. ?Pets: dogs: 3. ?Sexual abuse: no. ?Sexually active: no, monogamous relationship. ?Verbal abuse: no. * Medications:?TakingLosartan Potassium 25 MG Tablet 1 tablet Orally Once a day Albuterol Sulfate HFA 108 (90 Base) MCG/ACT Aerosol Solution INHALE 2 PUFFS INTO THE LUNGS EVERY 4 HOURS NEEDED FOR COUGH OR WHEEZING OR SHORTNESS OF BREATH Inhalation LORazepam 0.5 MG Tablet (Schedule IV Drug) TAKE 1 TABLET BY MOUTH EVERY 8 HOURS NEEDED FOR ANXIETY Oral Taking Losartan Potassium 25 MG Tablet 1 tablet Orally Once a day Taking Albuterol Sulfate HFA 108 (90 Base) MCG/ACT Aerosol Solution INHALE 2 PUFFS INTO THE LUNGS EVERY 4 HOURS NEEDED FOR COUGH OR WHEEZING OR SHORTNESS OF BREATH Inhalation Taking LORazepam 0.5 MG Tablet (Schedule IV Drug) TAKE 1 TABLET BY MOUTH EVERY 8 HOURS NEEDED FOR ANXIETY Oral Not-TakingSertraline HCl 25 MG Tablet TAKE 1 TABLET BY MOUTH DAILY Oral Estradiol 0.1 MG/GM Cream 1 gram Vaginal Two times a Week Not-Taking Sertraline HCl 25 MG Tablet TAKE 1 TABLET BY MOUTH DAILY Oral Not-Taking Estradiol 0.1 MG/GM Cream 1 gram Vaginal Two times a Week DiscontinuedamLODIPine Besylate 10 MG Tablet Oral Medication List reviewed and reconciled with the patientDiscontinued amLODIPine Besylate 10 MG Tablet Oral Medication List reviewed and reconciled with the patient * Allergies:?Bactrim: Hives - AllergyBiaxin: Rash/Nightmares - AllergyErythromycin: GI/Stomach Pain - AllergyAdhesive: blistersno[Allergies Verified] Objective: * Vitals:?Ht: 61 in, Wt:205lbs , BMI:38.73Index, BP:198/110mm Hg, Temp:97.0F. 2nd BP reading 194/106. * Examination: ???General Exam: ?CONSTITUTIONAL:?Genitourinary - Female: ?ABDOMEN:?soft, non-tender, no mass, no rebound, no guarding,no costovertebral angle tenderness.?EXTERNAL GENITALS:? normal.?VAGINA:? nontender anterior wall, nontender posterior wall, no abnormal discharges.?BLADDER;? nontender.?ANUS/PERINEUM:? visually normal.?CERVIX:? unable to palpate due to vaginal scarring from radiation.?UTERUS:? normal size, mobile, non tender.?OVARIES:? no masses felt in adnexa, nontender.?RECTAL EXAM:? no masses, normal tone, does not reproduce pain.?Psychiatry: ?AFFECT:? appropriate.?ATTITUDE:? cooperative.?SPEECH:? clear.? Assessment: * Assessment: 1.?Pelvic Pain - R10.2 (Prim nabila)??? Plan: * Treatment: * Procedure Codes:? * Preventive Medicine:?~~~~~~~~~~~~~~~~~~~~~~~~~~~ How do I prepare for a pelvic ultrasound? ~~~~~~~~~~~~~~~~~~~~~~~~~~~ EAT/DRINK : Drink a minimum of 24 ounces of clear fluid at least one hour before your appointment. Do not empty your bladder until after the exam. Generally, no fasting or sedation is required for a pelvic ultrasound, unless the ultrasound is part of another procedure that requires anesthesia. For a transvaginal ultrasound, you should empty your bladder right before the procedure. Your doctor will explain the procedure to you and offer you the opportunity to ask any questions that you might have about the procedure. Based on your medical condition, your doctor may request other specific preparation. ~~~~~~~~~~~~~~~~~~~~~~~~~~~ What happens during a pelvic ultrasound? ~~~~~~~~~~~~~~~~~~~~~~~~~~~ A pelvic ultrasound may be performed in your doctor's office, on an outpatient basis, or as part of your stay in a hospital. Procedures may vary depending on your condition and your hospital's practices. Generally, a pelvic ultrasound follows this process: ~~~~~~~~~~~~~~~~~~~~~ For a transabdominal ultrasound ~~~~~~~~~~~~~~~~~~~~~ You will be asked to remove any clothing, jewelry, or other objects that may interfere with the scan. If asked to remove clothing, you will be given a gown to wear. You will lie on your back on an examination table. A gel-like substance will be applied to your abdomen. The transducer will be pressed against the skin and moved around over the area being studied. If blood flow is being assessed, you may hear a whoosh, whoosh sound when the Doppler probe is used. Images of structures will be displayed on the computer screen. Images will be recorded on various media for the health care record. Once the procedure has been completed, the gel will be removed. You may empty your bladder when the procedure is completed. ~~~~~~~~~~~~~~~~~~~ For a transvaginal ultrasound ~~~~~~~~~~~~~~~~~~~ You will be asked to remove any clothing, jewelry, or other objects that may interfere with the scan. If asked to remove clothing, you will be given a gown to wear. You will lie on an examination table, with your feet and legs supported as for a pelvic examination. A long, thin transvaginal transducer will be covered with a plastic or latex sheath and lubricated. The tip of the transducer will be inserted into your vagina. This may be slightly uncomfortable. The transducer will be gently turned and angled to bring the areas for study into focus. You may feel mild pressure as the transducer is moved. If blood flow is being assessed, you may hear a whoosh, whoosh sound when the Doppler probe is used. Images of organs and structures will be displayed on the computer screen. Images may be recorded on various media for the health care record. Once the procedure has been completed, the transducer will be removed. ~~~~~~~~~~~~~~~~~~~~~~~~~~ What happens after a pelvic ultrasound? ~~~~~~~~~~~~~~~~~~~~~~~~~~ There is no special type of care required after a pelvic ultrasound. You may resume your normal diet and activity unless your doctor advises you differently. There are no confirmed adverse biological effects on patients or instrument operators caused by exposures to ultrasound at the intensity levels used in a diagnostic ultrasound. Your doctor may give you additional or alternate instructions after the procedure, depending on your particular situation. * Follow Up:?prn * Images: Billing Information: * Visit Code:? 11888 Office Visit, Est Pt., Level 4. * Procedure Codes:? 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 She notes a change in her diet, with more nuts/seeds lately. Wonders if that could be it? When did the pain start:: < a week ago Location of pain:: right lower quadrant Does pain radiate:: No Severity of pain:: moderate ?[Embedded Image Not Availab le]
[2024-06-17 09:53] LABS: MANUAL DIFF FLAG NO
[2024-06-17 10:02] LABS: Basophils Percent Auto 0.5 % (0-2); Eosinophils Absolute Auto 0.1 X10*3/uL (0.0-0.4); Eosinophils Percent Auto 2.5 % (0-4); Hematocrit 43.6 % (37.0-47.0); Hemoglobin 14.2 g/dl (12.0-16.0); Imm Gran Abs Auto 0.03 X10*3/uL (0.00-0.03); Imm Gran Pct Auto 0.7 % (0.0-0.4); Lymphocytes Absolute Auto 1.6 X10*3/uL (1.2-4.9); Lymphocytes Percent Auto 35.9 % (20-40); Mean Corpuscular HGB Conc 32.6 g/dl (31.0-35.0); Mean Corpuscular Hemoglobin 29.7 pg (27.0-33.0); Mean Corpuscular Volume 91.2 fL (80.0-98.0); Mean Platelet Volume 10.6 fL (9.4-12.3); Monocytes Absolute Auto 0.3 X10*3/uL (0.1-1.2); Monocytes Percent Auto 7.1 % (2-11); Neutrophils Absolute Auto 2.3 x10*3/uL (2.0-8.3); Neutrophils Percent Auto 53.3 % (45-73); Platelet Count 218 X10*3/uL (160-400); Red Blood Count 4.78 X10*6/uL (4.20-5.50); Red Cell Distribution Width 12.1 % (11.0-16.0); White Blood Count 4.3 X10*3/uL (4.8-10.8)
[2024-06-17 10:49] LABS: Alanine Aminotransferase 29 U/L (0-31); Alkaline Phosphatase 67 U/L (39-117); Anion Gap 13 (12-20); Aspartate Amino Transferase 34 U/L (5-31); Bilirubin Total 0.4 mg/dL (0.0-1.0); Blood Urea Nitrogen 12 mg/dL (9-16); Calcium 9.1 mg/dL (8.4-10.2); Carbon Dioxide 24 mmol/L (22-29); Chloride 106 mmol/L (96-108); Cholesterol 212 mg/dL (<200); Estimated Glomerular Filt Rate > 60; Glucose Fasting 88 mg/dL (60-99); HDL Cholesterol 51 mg/dL (>40); LDL Cholesterol Calculated 118 mg/dL (<100); Sodium 139 mmol/L (135-145); Total Protein 7.2 g/dL (6.5-8.0); Triglycerides 215 mg/dL (<150)
[2024-06-22 01:14] LABS: Vitamin D 25-OH, D2 <4 ng/mL; Vitamin D 25-OH, D3 56 ng/mL; Vitamin D 25-OH, Total 56 ng/mL (30-100)
== END 2024-06-17 06:09 | disposition home or self-care (01) ==
LOC: HO.HMGCLDS 06:08
PROVIDERS: PCP Internal Medicine; Visit Provider Internal Medicine
DX: Z00.01 Encounter for general adult medical examination with abnormal findings (principal); E55.9 Vitamin D deficiency, unspecified; F32.1 Major depressive disorder, single episode, moderate; K58.0 Irritable bowel syndrome with diarrhea; E78.9 Disorder of lipoprotein metabolism, unspecified; I10 Essential (primary) hypertension; F43.9 Reaction to severe stress, unspecified; G47.9 Sleep disorder, unspecified; Z68.38 Body mass index [BMI] 38.0-38.9, adult; M19.90 Unspecified osteoarthritis, unspecified site; E66.01 Morbid (severe) obesity due to excess calories; T66.XXXS Radiation sickness, unspecified, sequela; Z85.41 Personal history of malignant neoplasm of cervix uteri; S76.011D Strain of muscle, fascia and tendon of right hip, subsequent encounter
CPT/HCPCS: 36415; 80053; 80061; 82306; 85025; 96127

== ENCOUNTER 2024-06-17 11:03 | Outpatient (AMB) | payer OTHER, SELFPAY ==
--- NOTE | 2024-06-17 11:04 | A.OFFPC_ITS ---
Vital Signs 06/17/24 11:05 Height 5 ft 1 in Weight 207 lb 6 oz BMI 39.2 BP 162/90 H Blood Pressure Location Lt brachial Position Sitting Respiration 18 Pulse 98 Pulse Source Pulse Oximeter Temp 97.5 F Temp Source Oral Pulse Oximetry (%) 98 Oxygen Delivery Method Room Air Intake Visit Reasons: Annual visit Allergies azithromycin [AZITHROMYCIN] Allergy (Intermediate, Verified 06/17/24 11:05) Hives clarithromycin [From Biaxin] Allergy (Intermediate, Verified 06/17/24 11:05) Nightmare, Rash erythromycin base Allergy (Intermediate, Verified 06/17/24 11:05) Nausea Sulfa (Sulfonamide Antibiotics) Allergy (Intermediate, Verified 06/17/24 11:05) Rash sulfamethoxazole [From Bactrim] Allergy (Intermediate, Verified 06/17/24 11:05) Hives trimethoprim [From Bactrim] Allergy (Intermediate, Verified 06/17/24 11:05) Hives adhesive Allergy (Mild, Verified 06/17/24 11:05) Rash Medication List - Last Reconciled 06/17/24 by Radha Horton MD cholecalciferol (vitamin D3) 1,250 mcg PO QWEEK 3 months diclofenac sodium 75 mg PO BID 10 days levalbuterol tartrate 45 mcg/actuation inhalation lorazepam 0.5 mg PO BEDTIME PRN 30 days losartan 25 mg PO DAILY Tobacco use date assessed: 06/17/24 Dental Screening Dental Screen Date: 06/17/24 Did you have a dental visit in the last 12 months?: Yes Did you have a dental problem in the last 6 months where you did not have access to dental care?: No Was dental information given to patient?: Patient has dentist HPI Annual visit HPI Details - The patient is a 58-year-old female pr esenting for a routine physical examination and management of chronic conditions, primarily hypertension and irritable bowel syndrome. - Hypertension management includes adjus ting the current medication regimen due to persistently elevated blood pressure readings. Previous readings include 146/70 mmHg and 138/62 mmHg upon self-monitoring at work. - Long-standing diagnosis of irritable b owel syndrome with diarrhea predominance. Incorporating dietary management with supplements such as Banitrol to control symptoms. - Experiences groin and knee pain relate d to osteoarthritis, with notable improvement mentioned with the use of diclofenac - Continuing with vitamin D supplementat ion while awaiting repeat lab evaluati ons for potential deficiency. - Adhering to dietary adjustments due to lactose intolerance, utilizing lactose- free products effectively to mitigate gastrointestinal symptoms. - Psychosocial stressors include recent familial bereavement and concerns regarding the aging , with support discussed from a practical standpoint regarding daily household contributions. - Upcoming travel to [place] with anxie ty management addressed with existing Ativan prescription. - Plans for routine OBGYN follow-up in [place] without urgent concerns identified during this visit. History of cervical cancer with radiation treatment in the past Health Maintenance - Advised continuation of vitamin D supp lementation. - Routine blood pressure monitoring mike mmended, with adjustments to antihypertensive regimen as necessary. - Guidance provided on managing lactose intolerance through dietary choices and lactose-free alternatives. - Discussed lifestyle modifications for reducing stress and managing IBS symptoms, including potential consultation with a window covering sales consultant. - Recommended to maintain regular gyneco logical check-ups. 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 Patient Instructions - Increase losartan to 50 mg and monitor blood pressure regularly. - Take dicyclomine 20 minutes before avelina ls to manage IBS symptoms. - Continue using lactose-free products a nd supplements to manage lactose intolerance. - Use Aleve (naproxen) as needed for alina n management related to osteoarthritis. - Avoid excessive heat and use powder to manage rash due to sweating after showering. - Schedule OBGYN follow-up and attend annual physical exam as advised. Mammogram up-to-date Colonoscopy up-to-date Review of Systems - General: No fever no chills - Neurological: No headaches no dizzin ess - Ear nose throat: No sore throat no hearing difficulty no ear pain - Cardiovascular: No syncope, no chest pain, no palpitations - Gastrointestinal: No nausea vomiting or diarrhea - Endocrine: No polyuria polydipsia no heat intolerance - Genitourinary: No dysuria - Skin: No new complaints Physical Exam General: Cooperative, healthy appearing, comfortable, no acute distress Orientation: Patient oriented x3 Limitations: Due to diarrhea Head: Normal to inspection Ears: Within normal limit visually Nose: Normal external nose present Face and sinus: Normal facial exam Eyes: Appearance normal, extraocular movement intact pupils reactive Neck: Normal visual inspection and supple Respiratory: Normal respiratory effort and able to speak in complete sentences. Clear to auscultation, no stridor Cardiovascular: S1 and S2 GI: Normal to inspection. Soft to palpation and nontender Skin: Turgor normal, no acute findings. Rash present due to sweating, especially on the back. Neuro: Patient oriented x3, motor sensory intact, balance intact, tandem pass Extremities: Normal to inspection, knee pain reported but much better, sometimes felt in the morning due to sleeping position. 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 1. Little interest or pleasure in doing things: not at all 2. Feeling down, depressed, or hopeless: several days 3. Trouble falling or staying asleep, or sleeping too much: not at all 4. Feeling tired or having little energy: several days 5. Poor appetite or overeating: not at all 6. Feeling bad about yourself - or that you are a failure or have let yourself or your family down: not at all 7. Trouble concentrating on things, such as reading the newspaper or watching television: not at all 8. Moving or speaking so slowly that other people could have noticed. Or the opposite - being so fidgety or restless that you have been moving around a lot more than usual: not at all 9. Thoughts that you would be better off or of hurting yourself in some way: not at all Total score: 2 Depression Screening Interpretation: Negative Depression Screening Done: Yes 21779 - PHQ-9 Billing: Yes Source: Developed by Drs. Luis A Correia, Catie Dominguez, Paul Pollard and colleagues, with an educational john paul from [employer]. Thrive Questionnaire Date Thrive assessed: 06/17/24 I am a: Patient What is your living situation today?: I have a steady place to live Within the past 12 months, did the food you bought not last and you didn't have the money to get more?: Never true Within the past 12 months, did you worry whether your food would run out before you got money to buy more?: Never true Do you have trouble paying for medicines?: No Do you have trouble getting transportation to medical appointments?: No Do you have trouble paying your heating and electricity bill?: No Do you have trouble taking care of your child, family member or friend?: No Do you have trouble with day-to-day activities such as bathing, preparing meals, shopping, managing finances, etc.?: No Are you currently unemployed and looking for a job?: No Are you interested in more education?: No Please select the resources that you would like help with: None Currently or been in a relationship where the following occur: No concerns reported THRIVE Score: 0 AUDIT C Alcohol Use Questionnaire (AUDIT-C) 1. How often do you have a drink containing alcohol?: Monthly or less 2. How many drinks containing alcohol do you have on a typical day when you are drinking?: 1 or 2 3. How often do you have six or more drinks on one occasion?: Never Total Score: 1 Score Reviewed/Action Taken: Yes NARINDER-7 AMB Questionnaire NARINDER-7 Date NARINDER - 7 assessed: 06/17/24 Feeling nervous, anxious, or on edge: 0 = Not at all Not being able to stop or control worryin = Not at all Worrying too much about different things: 0 = Not at all Trouble relaxin = Not at all Being so restless that it is hard to sit still: 0 = Not at all Becoming easily annoyed or irritable: 0 = Not at all Feeling afraid as if something awful might happen: 0 = Not at all Total NARINDER-7 score (0-4 normal; 5-9 mild; 10-14 moderate; 15-21 severe): 0 Source: Developed by Drs. Luis A Correia, Catie Dominguez, Paul Pollard and colleagues, with an educational john paul from [employer]. NARINDER-7 Assessment Billing NARINDER-7 Assessment Tool: NARINDER-7 Assessment 63522 Physical exam (Primary Care) Vital Signs: Last Vital Signs Temp 97.5 F 06/17/24 11:05 Pulse 98 06/17/24 11:05 Resp 18 06/17/24 11:05 BP 162/90 H 06/17/24 11:05 Pulse Ox 98 06/17/24 11:05 Oxygen Delivery Method Room Air 06/17/24 11:05 BMI result Body Mass Index 39.2 Tobacco/Smoking Status: Tobacco use Status Tobacco use date assessed 06/17/24 06/17/24 11:07 Patient Tobacco Use Status Never used Tobacco 06/17/24 11:07 e-Cigarette/Vaping Use Never Used 06/17/24 11:07 PHQ-9: PHQ-9 Score PHQ-9: Total score 2 06/17/24 11:30 Depression Screening Interpretation: Negative Thrive Assessment: Date of Thrive Assessment Date Thrive assessed 06/17/24 06/17/24 11:07 Currently or been in a relationship where the following occur: No concerns reported Coding Level of Care Code Est Pt Level 4 (08030) Est Pt Prev Care 40-64y(78117) Diagnoses Encounter for general adult medical examination with abnormal findings Z00.01 Hypertension, essential I10 Lipid disorder E78.9 Adverse effect of radiation, sequela T66.XXXS Encounter type: sequela Irritable bowel syndrome with diarrhea K58.0 History of cervical cancer Z85.41 Strain of right psoas muscle, initial encounter S76.011A Encounter type: initial encounter Laterality: right Vitamin D deficiency E55.9 Class 2 severe obesity due to excess calories with serious comorbidity and body mass index (BMI) of 38.0 to 38.9 in adult E66.01; Z68.38 Obesity classification: adult class 2 (BMI 35 - 39.9) Serious obesity comorbidity presence: with serious comorbidity Body mass index: BMI 38.0-38.9 Additional Codes NARINDER-7 Assessment Billing - NARINDER-7 Assessment Tool: NARINDER-7 Assessment 18438 ([id number]) PHQ-9 - 63505 - PHQ-9 Billing: Yes ([id number]) Assessment & Plan Assessment & Plan (1) Encounter for general adult medical examination with abnormal findings: Code(s): Z00.01 - Encounter for general adult medical examination with abnormal findings Category: Medical (2) Hypertension, essential: Code(s): I10 - Essential (primary) hypertension Category: Medical (3) Lipid disorder: Code(s): E78.9 - Disorder of lipoprotein metabolism, unspecified Category: Medical (4) Radiation adverse effect: Code(s): T66.XXXA - Radiation sickness, unspecified, initial encounter Category: Medical Qualifiers: Encounter type: sequela Qualified Code(s): T66.XXXS - Radiation sickness, unspecified, sequela (5) Irritable bowel syndrome with diarrhea: Code(s): K58.0 - Irritable bowel syndrome with diarrhea Category: Medical (6) History of cervical cancer: Code(s): Z85.41 - Personal history of malignant neoplasm of cervix uteri Category: Medical (7) Psoas muscle strain: Code(s): S76.019A - Strain of muscle, fascia and tendon of unspecified hip, initial encounter Category: Medical Qualifiers: Encounter type: initial encounter Laterality: right Qualified Code(s): S76.011A - Strain of muscle, fascia and tendon of right hip, initial encounter (8) Vitamin D deficiency: Code(s): E55.9 - Vitamin D deficiency, unspecified Category: Medical (9) Obesity due to excess calories: Code(s): E66.09 - Other obesity due to excess calories Category: Medical Qualifiers: Obesity classification: adult class 2 (BMI 35 - 39.9) Serious obesity comorbidity presence: with serious comorbidity Body mass index: BMI 38.0-38.9 Qualified Code(s): E66.01 - Morbid (severe) obesity due to excess calories; Z68.38 - Body mass index [BMI] 38.0-38.9, adult Plan - The patient is a 58-year-old female presenting for a routine physical examination and management of chronic conditions, primarily hypertension and irritable bowel syndrome. - Hypertension management includes adjusting the current medication regimen due to persistently elevated blood pressure readings. Previous readings include 146/70 mmHg and 138/62 mmHg upon self-monitoring at work. - Long-standing diagnosis of irritable bowel syndrome with diarrhea predominance. Incorporating dietary management with supplements such as Banitrol to control symptoms. - Experiences groin and knee pain related to osteoarthritis, with notable improvement mentioned with the use of diclofenac - Continuing with vitamin D supplementation while awaiting repeat lab evaluations for potential deficiency. - Adhering to dietary adjustments due to lactose intolerance, utilizing lactose- free products effectively to mitigate gastrointestinal symptoms. - Psychosocial stressors include recent familial bereavement and concerns regarding the aging , with support discussed from a practical standpoint regarding daily household contributions. - Upcoming travel to [place] with anxiety management addressed with existing Ativan prescription. - Plans for routine OBGYN follow-up in place without urgent concerns identified during this visit. History of cervical cancer with radiation treatment in the past Health Maintenance - Advised continuation of vitamin D supplementation. - Routine blood pressure monitoring recommended, with adjustments to antihypertensive regimen as necessary. - Guidance provided on managing lactose intolerance through dietary choices and lactose-free alternatives. - Discussed lifestyle modifications for reducing stress and managing IBS symptoms, including potential consultation with a window covering sales consultant. - Recommended to maintain regular gynecological check-ups. 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 Patient Instructions - Increase losartan to 50 mg and monitor blood pressure regularly. - Take dicyclomine 20 minutes before meals to manage IBS symptoms. - Continue using lactose-free products and supplements to manage lactose intolerance. - Use Aleve (naproxen) as needed for pain management related to osteoarthritis. - Avoid excessive heat and use powder to manage rash due to sweating after showering. - Schedule OBGYN follow-up and attend the annual physical exam as advised. Mammogram up-to-date Colonoscopy up-to-date Follow-up six-month Medications: New dicyclomine 20 min before meals, up to 2 capsules 10 mg PO TID PRN 60 caps 0RF IBS Changed From losartan 25 mg PO DAILY 90 tabs 0RF To losartan 50 mg PO DAILY 90 tabs 0RF Refilled diclofenac sodium 75 mg PO BID 10 days 20 tabs 0RF pain lorazepam 0.5 mg PO BEDTIME 30 days PRN 30 tabs 0RF sleep
[2024-06-17 11:05] VITALS: BP 162/90; PULSE 98; RESP 18; TEMP 36.4; O2SAT 98; BMI 39.2
== END 2024-06-17 11:32 | disposition home or self-care (01) ==
PROVIDERS: PCP Internal Medicine; Visit Provider Internal Medicine
DX: Z00.01 Encounter for general adult medical examination with abnormal findings (principal); I10 Essential (primary) hypertension; E66.01 Morbid (severe) obesity due to excess calories; Z68.38 Body mass index [BMI] 38.0-38.9, adult; E78.9 Disorder of lipoprotein metabolism, unspecified; T66.XXXS Radiation sickness, unspecified, sequela; K58.0 Irritable bowel syndrome with diarrhea; Z85.41 Personal history of malignant neoplasm of cervix uteri; S76.011A Strain of muscle, fascia and tendon of right hip, initial encounter; E55.9 Vitamin D deficiency, unspecified

== ENCOUNTER 2024-06-28 08:14 | Outpatient (REF) | payer OTHER, SELFPAY ==
[2024-06-28 15:06] LABS: Influenza A PCR NEGATIVE (Negative); Influenza B PCR NEGATIVE (Negative); Resp Syncy Virus RNA Qual PCR NEGATIVE (Negative); SARS COV2 PCR INHOUSE NEGATIVE (Negative)
== END 2024-06-28 08:15 | disposition home or self-care (01) ==
LOC: HO.LAB 08:14
PROVIDERS: PCP Internal Medicine; Visit Provider Physician Assistant
DX: J11.1 Influenza due to unidentified influenza virus with other respiratory manifestations (principal); R09.89 Other specified symptoms and signs involving the circulatory and respiratory systems
CPT/HCPCS: 0241U

== ENCOUNTER 2024-06-28 08:14 | Outpatient (AMB) | payer OTHER, SELFPAY ==
--- OUTSIDE RECORDS SUMMARY | 2024-06-28 08:35 | XMS_ITS | Patient Health Record ---
Author Organization [facility] Address [address] [address] Care Team Providers Care Software Quality Manager Name Role Phone PEYTON MILLER Unavailable [phone] Allergies Allergen (clinical drug ingredient) Drug/Non Drug [...] HCl 25 MG TAKE 1 TABLET BY [facility] DAILY Oral for 30 Not-Taking Estradiol 0.1 [...] Status Risk Notes Problem Postmenopausal atrophic vaginitis ([id number]) Postmenopausal atrophic vaginitis (N95.2) Active confirmed Problem History of malignant neoplasm of cervix ([id number]) Personal history of malignant neoplasm of cervix [...] Encounters Encounter Location Date Provider Diagnosis [facility] [email or web address] [address] [place] [address] 05/31/2024 PEYTON MILLER Pelvic Pain R10.2 [facility] [email or web address] [address] [place] [address] 06/02/2024 PEYTON MILLER Assessments Encounter Date Diagnosis (ICD Code) Assessment Notes Treatment Notes Treatment Clinical Notes Section Notes 05/31/2024 Pelvic Pain (ICD-10 - R10.2) Unclear as to the source of the tugging sensation, but can check ultrasound for ovarian cysts or other ovarian pathology. Plan Of Treatment Pending Test Test Name Order Date ULTRASOUND: PELVIC W/TRANSVAGINAL 2024 Diagnostic Left Breast Mammo/US 03/06/20 22 MM Digital Screening Mammogram 3D 2023 MM Digital Screening Mammogram 3D 2019 MM Digital Screening Mammogram 3D 2020 MM Digital Screening Mammogram 3D 2021 Next Appt Details Provider Name:PEYTON Nagy, 07/07/2024 10:00:00 AM, [address], [place], [address], Insurance Providers Payer Name Payer Address Payer Phone Subscriber Number Group Number Insured Name Patient Relationship to Insured Coverage Start Date Coverage End Date [facility] [address] [facility] [id number] KIERA STONE Self - patient is the insured Medical (General) History Medical History History ICD Code Personal history of malignant neoplasm o f cervix uteri Z85.41 Pityriasis versicolor B36.0 Radiation proctitis K62.7 Postmenopausal atrophic vaginitis N95.2 Essential (primary) hypertension I10 Anxiety disorder, unspecified F41.9 Surgical History Surgery Date(Month/Year) [facility] Biopsy 2007 D+C 2010 [place] Te[facility] 1986 Radiation for Cervical Cancer 2007 Vein stripping right leg and vein ablati on 04/2023 Hospitalization History Reason Date(Month/Year) See surgical hx
--- OUTSIDE RECORDS SUMMARY | 2024-06-28 08:35 | XMS_ITS ---
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 [address] [place] [address] 06/24/2024 PEYTON MILLER Plan Of Treatment Next Appt Details Provider Name:PEYTON Nagy, 07/07/2024 10:00:00 AM, [address] [place] [address], [address], [place], [address], Progress Notes * RADHA STONEOB:[birth year] (58 yo F)Acc No.[id number]:06/24/2024 PROGRESS NOTES Patient:?KIERA STONE Provider:?PEYTON MILLER MD :1965???Age:58 Y???Sex:Female D ate:06/24/2024 Address:[address] [place], [place] [id number] Subjective: * Chief Complaints: * ???1. 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 * Medical History:? Objective: * Vitals:? Assessment: Plan: * Treatment: * Images: Billing Information: * Visit Code:? * Procedure Codes:? * Electronic signature of PEYTON MILLER MD on 06/28/2024 at 08:35 AM EST Sign off status: Pending * Provider:?PEYTON MILLER MD Date:?2024 Generated for Sharoni rachel/Adelina/eTransmitting on:?06/28/2024 08:35 AM EST
--- OUTSIDE RECORDS SUMMARY | 2024-06-28 08:35 | XMS_ITS ---
Author Organization [employer] [facility] Address [address] [facility] [address] [place] [address] Care Team Providers Care Safety And Skill Based Pay Manager Name Role Phone PEYTON MILLER Unavailable [phone] Allergies Allergen (clinical drug ingredient) Drug/Non Drug [...] HCl 25 MG TAKE 1 TABLET [address] [facility] DAILY Oral for 30 Not-Taking Estradiol 0.1 [...] Encounters Encounter Location Date Provider Diagnosis [facility] [address] [place] [address] 05/31/2024 PEYTON MILLER Pelvic Pain R10.2 Assessments [...] Name:PEYTON Jamir Nagy, 07/07/2024 10:00:00 AM, [address], [address], [place], [address], Progress Notes * RADHA STONEOB:[birth year] (58 yo F)Acc No.[id number]:05/31/2024 PROGRESS NOTES Patient:?KIERA STONE Provider:?PEYTON MILLER MD :1965???Age:58 Y???Sex:Female D ate:05/31/2024 Address:[address] [place], [place] [id number] Subjective: * Chief Complaints: * ???RLQ PULLING SENSATION * HPI: ???PEARL GLUE DRIER (Problems):?58 year old female presents with c/o [...] feelings of depression.? * Medical History:? 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 ?Natural support system: yes. ?Occupation: [employer]. ?Pets: dogs: 3. ?Sexual abuse: [...] * Images: Billing Information: * Visit Code:? 31949 Office Visit, Est Pt., Level 4. * Procedure Codes:? * Sign off status: Completed true * Provider:?PEYTON MILLER MD Date:?2024 Generated for Raquel ramos/Adelina/Renee on:?06/28/2024 08:35 AM EST History and Physical Notes * HPI (History of Present Illness) Category Sub-Category Detail Notes Category Not es PEARL GLUE DRIER (Problems) Pelvic Pain: How did the pain [...]
--- OUTSIDE RECORDS SUMMARY | 2024-06-28 08:36 | XMS_ITS ---
Author Organization [employer] [facility] Address [address] [place] [address] Care Team Providers Care Clinical Practitioner Name Role Phone PEYTNO MILLER Unavailable [phone] REASON FOR VISIT Followup Encounters Encounter Location Date Provider Diagnosis [facility] [employer] [facility] [employer] [facility] [address] [place] [address] 06/02/2024 PEYTON MILLER Plan Of Treatment Next Appt Details Provider Name:PEYTON Nagy, 07/07/2024 10:00:00 AM, [address] [facility], [address], [place], [address], Progress Notes * RADHA STONEOB:[birth year] (58 yo F)Acc No.[id number]:06/02/2024 Patient:?KIERA STONE :1965???Age:58 Y???Sex:Female Address:[address] [place] [address], [address] * true * Date:? Generated for Raquel ramos/Adelina/eTransmitting on:?06/28/2024 08:35 AM EST
[2024-06-28 09:32] VITALS: BP 128/90; PULSE 93; TEMP 36.8; O2SAT 97
--- NOTE | 2024-06-28 09:32 | AM.OFFWIN_ITS ---
Intake Vital Signs 06/28/24 09:32 Weight 206 lb BP 128/90 H Blood Pressure Location Lt brachial Position Sitting Pulse 93 Pulse Source Pulse Oximeter Temp 98.2 F Temp Source Oral Pulse Oximetry (%) 97 Oxygen Delivery Method Room Air Intake Visit Reasons: EP no appetite, chills, weakness, headache Intake Note: Patient here for no appetite, headaches, chills and body aches that started over the weekend. Patient Tobacco Use Status: Never used Tobacco Allergies azithromycin [AZITHROMYCIN] Allergy (Intermediate, Verified 06/28/24 09:35) Hives clarithromycin [From Biaxin] Allergy (Intermediate, Verified 06/28/24 09:35) Nightmare, Rash erythromycin base Allergy (Intermediate, Verified 06/28/24 09:35) Nausea Sulfa (Sulfonamide Antibiotics) Allergy (Intermediate, Verified 06/28/24 09:35) Rash sulfamethoxazole [From Bactrim] Allergy (Intermediate, Verified 06/28/24 09:35) Hives trimethoprim [From Bactrim] Allergy (Intermediate, Verified 06/28/24 09:35) Hives adhesive Allergy (Mild, Verified 06/28/24 09:35) Rash Do you need a note to return to daycare/school/sports/work: No HPI HPI Comments History of Present Illness Details History - The patient is a 58-year-old female pr esenting with symptoms consistent with an influenza-like illness. - Initial symptoms began 3 days ago with chills during sleep. - Significant symptoms include a sinus h eadache with pressure, weakness in limbs, fatigue, and fogginess. - [place] feverish without confirmed fever, occasional cough noted. - Negative home rapid COVID test; appeti te reduced, relies on Pedialyte and light meals. - Self-treatment involves Tylenol and in creased fluid intake. Physical Exam General: Cooperative, healthy appearing, comfortable and no acute distress Orientation/consciousness: Patient oriented x3 Limitations: No limitations Head: Normal to inspection Ears: Hearing grossly normal bilaterally, external ears normal and TM's normal bilaterally Nose: Normal external nose present, Normal nares present and No nasal discharge present Face and sinus: Normal facial exam and Yes sinuses tender Mouth: Normal oral and palatal mucosa present and moist mucous membranes Throat: Yes tonsils normal, Yes uvula midline. Posterior oropharynx erythema Eyes: Appearance normal, both eyes and all related structures Neck: Normal visual inspection Respiratory: Clear to auscultation bilaterally. Normal respiratory effort, able to speak in complete sentences, Occasional cough, no respiratory distress, not tachypneic, no tripod positioning and no use of accessory muscles Cardiovascular: Regular rate and rhythm. 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 VSS, pt well appearing and PE unremarkable. The patient presents with an influenza-like illness, and the management plan is to focus on symptomatic relief with [id number]-[id number] medications. The use of Tamiflu was considered but not pursued due to potential side effects. Emphasis was placed on rest, hydration, and continued symptomatic care pending flu test results. A pamphlet has been provided to guide symptom management at home effectively. Patient was informed and verbally consented to the use of an ambient scribe for clinic note documentation during this visit Orders: Orders SARS-CoV2/FLU/RSV Today R09.89 - Other specified symptoms and signs involving the circulatory and respiratory systems Coding Level of Care Code Est Pt Level 3 (39694) Diagnoses Influenza-like illness J11.1
== END 2024-06-28 09:57 | disposition home or self-care (01) ==
PROVIDERS: PCP Internal Medicine; Visit Provider Physician Assistant
DX: J11.1 Influenza due to unidentified influenza virus with other respiratory manifestations (principal)

== ENCOUNTER 2024-10-31 16:11 | Outpatient (REF) | payer OTHER, SELFPAY ==
--- OUTSIDE RECORDS SUMMARY | 2024-10-31 16:15 | XMS_ITS | Patient Health Record ---
Author Organization [facility] Address [address] [place] [address] Care Team Providers Care Hub Borer Name Role Phone Debbie GALE, [place] Primary Care Provide r Unavailable Estela Olmedo Unavailable [phone] Allergies Allergen (clinical drug ingredient) Drug/Non Drug Allergy documented on EMR Reaction Allergy Type Onset Date Status adhesive tape (uncoded) redness,bliste rs Allergy Active sulfamethoxazole / trimethoprim Bactrim hives Drug Allergy Active Biaxin hives,stomach pain Drug Allergy Active erythromycin Erythromycin hives Drug Allergy A ctive Reason For Referral No Information Medications Medication SIG (Take, Route, Fr equency, Duration) Notes Start Date End Date Status Physical Therapy . . . 2-3x/week; Durat ion: 3-4 weeks 02/06/2020 Active Calcium Active Vitamin B12 Active immodium 1 tab Oral PRN Activ e Ativan 0.5 MG 1 tablet at bedtime as needed Orally Once a day Active Social History Tobacco Use: Social History Observation Description Date Details (start date - stop date) Never Smoker NA - NA Tobacco Use/Smoking Question Answer Notes Are you a: nonsmoker Additional Findings: Tobacco Non-User Current no n-smoker Alcohol Screen Question Answer Notes Did you have a drink containing alcohol in the p ast year? Yes Points 0 Interpretation Negative Plan Of Treatment Pending Test Test Name Order Date X ray : Foot, right 3V 02/06/2020 Insurance Providers Payer Name Payer Address Payer Phone Subscriber Number Group Number Insured Name Patient Relationship to Insured Coverage Start Date Coverage End Date [facility] [address] [facility] [place] [address] [phone] [id number] JUAN J STONE Spouse - patient is the spouse of the insured Medical (General) History Medical History History ICD Code Knee Pain cervical cancer High blood pressure Irritable bowel syndrome Transfusions Surgical History Surgery Date(Month/Year) cervical ca 2008
== END 2024-10-31 16:12 | disposition home or self-care (01) ==
LOC: HO.MAMMO 16:11
PROVIDERS: Absent Provider Obstetrics & Gynecology; PCP Internal Medicine; Visit Provider Internal Medicine
DX: Z12.31 Encounter for screening mammogram for malignant neoplasm of breast (principal)
CPT/HCPCS: 77063; 77067

== ENCOUNTER → 2024-10-31 16:15 | Outpatient (BNV) | payer OTHER, SELFPAY | PROVIDERS: Absent Provider Obstetrics & Gynecology; PCP Internal Medicine; Visit Provider Internal Medicine | DX: Z12.31 Encounter for screening mammogram for malignant neoplasm of breast (principal) | CPT/HCPCS: 77063; 77067 ==

== ENCOUNTER 2024-12-16 10:06 | Outpatient (AMB) | payer OTHER, SELFPAY ==
--- OUTSIDE RECORDS SUMMARY | 2024-06-30 09:00 | XMS_ITS ---
Author Organization 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 Encounter Location Date Provider Diagnosis [facility] [address] [place], [place] [address] [facility] [address] [place] [address] 06/30/2024 PEYTON MILLER Plan Of Treatment Next Appt Details Provider Name:PEYTON Nagy, 08/03/2025 10:30:00 AM, [address] [place] [address], [address], [place], [address], Progress Notes * RADHA STONEOB:[birth year] (59 yo F)Acc No.[id number]:06/30/2024 PROGRESS NOTES Patient: KIERA CASTRO Provider: Jamir MILLER MD :1965 A ge:58 Y S ex:Female Date:06/30/2024 Address:[address] [place], [place] [id number] Subjective: * Chief Complaints: * 1 . 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 * Medical History: Objective: * Vitals: Assessment: Plan: * Treatment: * Images: Billing Information: * Visit Code: * Procedure Codes: * Electronic signature of PEYTON MILLER MD on 12/16/2024 at 10:18 AM EDT Sign off status: Pending * Provider: Jamir MILLER MD Date: 0 06/30/2024 Generated for Raquel ramos/Adelina/eTransmitting on: 0 12/16/2024 10:18 AM EDT
--- NOTE | 2024-12-16 10:11 | A.OFFPC_ITS ---
Vital Signs 12/16/24 10:14 Height 5 ft 1 in Weight 198 lb BMI 37.4 BP 130/80 Blood Pressure Location Lt brachial Position Sitting Pulse 88 Pulse Source Pulse Oximeter Pulse Oximetry (%) 98 Oxygen Delivery Method Room Air Intake Visit Reasons: 6m follow up Allergies azithromycin (AZITHROMYCIN) Allergy (Intermediate, Verified 12/16/24 10:14) Hives clarithromycin (From Biaxin) Allergy (Intermediate, Verified 12/16/24 10:14) Nightmare, Rash erythromycin base Allergy (Intermediate, Verified 12/16/24 10:14) Nausea Sulfa (Sulfonamide Antibiotics) Allergy (Intermediate, Verified 12/16/24 10:14) Rash sulfamethoxazole (From Bactrim) Allergy (Intermediate, Verified 12/16/24 10:14) Hives trimethoprim (From Bactrim) Allergy (Intermediate, Verified 12/16/24 10:14) Hives adhesive Allergy (Mild, Verified 12/16/24 10:14) Rash Medication List - Last Reconciled 12/16/24 by Radha Horton MD cholecalciferol (vitamin D3) 1,250 mcg PO QWEEK 3 months dicyclomine 10 mg PO TID PRN levalbuterol tartrate 45 mcg/actuation inhalation lorazepam 0.5 mg PO BEDTIME PRN 30 days losartan 50 mg PO DAILY Tobacco use date assessed: 06/17/24 Dental Screening Dental Screen Date: 06/17/24 HPI 6m follow up HPI Details Chief Complaint Follow-up for hypertension management. History of Present Illness The patient is a 59 year old female presenting with hypertension follow-up. Hypertension: - Blood pressure readings at the [facility] vary from 130s to 140s systolic, and occasionally as low as 76 diastolic. - Home blood pressure monitor yields inc onsistent and high readings. - [facility] - No associated symptoms such as headach es, blurring, or vision changes reported. - Patient works to manage salt intake to control hypertension. - Continues to take losartan 50 mg for h ypertension management. Behavioral and Emotional Wellbeing: - Started attending counseling sessions which are perceived as helpful. - Main topics include dealing with issue s related to aunt and the of the patient's mother. Anxiety: - Occasional use of lorazepam, especiall y during recent travel. - Last prescription was in June and 10 tablets remain. - Planning to get a refill for future us e. Gastrointestinal Concerns: - Took dicyclomine during a recent trip to manage symptoms, but no continued use after the trip. Medical History: - Hypertension - Anxiety Medications: - Losartan 50 mg daily for hypertension - Occasional lorazepam for anxiety - Vitamin D supplementation - Dicyclomine as needed for gastrointest inal discomfort Social History: - Engages in physical activity, includin g recent travel involving significant walking, reportedly improving stamina. Family History: - Mother had breast cancer in her 70s. Diagnostic Results: - Labs: Recent mammogram performed, resu lt not specified. - Tests and diagnostics: Recent blood pr essure readings: - Dental appointment: 128 mmHg systolic - Workplace readings vary from 130s-140s /76-80 mmHg Problem List - Essential Hypertension - Anxiety - Gastrointestinal spasm - Obesity Patient Instructions - Continue managing salt intake for bloo d pressure control. - Use lorazepam as needed and refill pre scription. - Follow-up with counselor as beneficial . - Continue taking losartan 50 mg daily. - Perform regular breast exams. Review of Systems - General: No fever no chills - Neurological: No headaches no dizziness - Ear nose throat: No sore throat no hearing difficulty no ear pain - Cardiovascular: No syncope, no chest pain, no palpitations - Gastrointestinal: No nausea vomiting or diarrhea - Endocrine: No polyuria polydipsia no heat intolerance - Genitourinary: No dysuria , no blood in urine Physical Exam General: No acute distress HEENT: No acute findings Neck: Supple Respiratory system: Able to talk in full sentences, no audible wheeze Cardiovascular: S1-S2 regular in rate and rhythm, blood pressure is 130/80 Gastrointestinal: No pain Extremities: No new findings 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 Father No problems noted. 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 1. Little interest or pleasure in doing things: several days 2. Feeling down, depressed, or hopeless: several days 3. Trouble falling or staying asleep, or sleeping too much: not at all 4. Feeling tired or having little energy: several days 5. Poor appetite or overeating: not at all 6. Feeling bad about yourself - or that you are a failure or have let yourself or your family down: not at all 7. Trouble concentrating on things, such as reading the newspaper or watching television: not at all 8. Moving or speaking so slowly that other people could have noticed. Or the opposite - being so fidgety or restless that you have been moving around a lot more than usual: not at all 9. Thoughts that you would be better off or of hurting yourself in some way: not at all Total score: 3 Depression Screening Interpretation: Negative Depression Screening Done: Yes 76381 - PHQ-9 Billing: Yes Source: Developed by Drs. Luis A Correia, Catie Dominguez, Paul Pollard and colleagues, with an educational john paul from [employer]. Thrive Questionnaire Date Thrive assessed: 06/03/24 I am a: Patient What is your living situation today?: I have a steady place to live Within the past 12 months, did the food you bought not last and you didn't have the money to get more?: Never true Within the past 12 months, did you worry whether your food would run out before you got money to buy more?: Never true Do you have trouble paying for medicines?: No Do you have trouble getting transportation to medical appointments?: No Do you have trouble paying your heating and electricity bill?: No Do you have trouble taking care of your child, family member or friend?: No Do you have trouble with day-to-day activities such as bathing, preparing meals, shopping, managing finances, etc.?: No Are you currently unemployed and looking for a job?: No Are you interested in more education?: No Please select the resources that you would like help with: None Currently or been in a relationship where the following occur: No concerns reported THRIVE Score: 0 NARINDER-7 AMB Questionnaire NARINDER-7 Date NARINDER - 7 assessed: 06/17/24 Source: Developed by Drs. Luis A Correia, Catie Dominguez, Paul Pollard and colleagues, with an educational john paul from [employer]. Physical exam (Primary Care) Vital Signs: Last Vital Signs Pulse 88 12/16/24 10:14 BP 130/80 12/16/24 10:14 Pulse Ox 98 12/16/24 10:14 Oxygen Delivery Method Room Air 12/16/24 10:14 BMI result Body Mass Index 37.4 Tobacco/Smoking Status: Tobacco use Status Tobacco use date assessed 06/17/24 12/16/24 10:12 Patient Tobacco Use Status Never used Tobacco 12/16/24 10:12 e-Cigarette/Vaping Use Never Used 12/16/24 10:12 PHQ-9: PHQ-9 Score PHQ-9: Total score 3 12/16/24 10:31 Depression Screening Interpretation: Negative Thrive Assessment: Date of Thrive Assessment Date Thrive assessed 06/03/24 12/16/24 10:12 Currently or been in a relationship where the following occur: No concerns reported Coding Level of Care Code Est Pt Level 4 (73788) Diagnoses Hypertension, essential I10 Anxiety, generalized F41.1 Lipid disorder E78.9 Irritable bowel syndrome with diarrhea K58.0 Vitamin D deficiency E55.9 Class 2 severe obesity due to excess calories with serious comorbidity and body mass index (BMI) of 38.0 to 38.9 in adult E66.01; Z68.38 Body mass index: BMI 38.0-38.9 Obesity classification: adult class 2 (BMI 35 - 39.9) Serious obesity comorbidity presence: with serious comorbidity History of cervical cancer Z85.41 Additional Codes PHQ-9 - 89450 - PHQ-9 Billing: Yes ([id number]) Assessment & Plan Assessment & Plan (1) Hypertension, essential: Code(s): I10 - Essential (primary) hypertension Category: Medical (2) Anxiety, generalized: Code(s): F41.1 - Generalized anxiety disorder Category: Medical (3) Lipid disorder: Code(s): E78.9 - Disorder of lipoprotein metabolism, unspecified Category: Medical (4) Irritable bowel syndrome with diarrhea: Code(s): K58.0 - Irritable bowel syndrome with diarrhea Category: Medical (5) Vitamin D deficiency: Code(s): E55.9 - Vitamin D deficiency, unspecified Category: Medical (6) Obesity due to excess calories: Code(s): E66.09 - Other obesity due to excess calories Category: Medical Qualifiers: Body mass index: BMI 38.0-38.9 Obesity classification: adult class 2 (BMI 35 - 39.9) Serious obesity comorbidity presence: with serious comorbidity Qualified Code(s): E66.01 - Morbid (severe) obesity due to excess calories; Z68.38 - Body mass index [BMI] 38.0-38.9, adult (7) History of cervical cancer: Code(s): Z85.41 - Personal history of malignant neoplasm of cervix uteri Category: Medical Plan Chief Complaint Follow-up for hypertension management. History of Present Illness The patient is a 59 year old female presenting with hypertension follow-up. Hypertension: - Blood pressure readings at the workplace vary from 130s to 140s systolic, and occasionally as low as 76 diastolic. - Home blood pressure monitor yields inconsistent and high readings. - Recent blood pressure reading at the dental appointment was 128 systolic. - No associated symptoms such as headaches, blurring, or vision changes reported. - Patient works to manage salt intake to control hypertension. - Continues to take losartan 50 mg for hypertension management. Behavioral and Emotional Wellbeing: - Started attending counseling sessions which are perceived as helpful. - Main topics include dealing with issues related to aunt and the of the patient's mother. Anxiety: - Occasional use of lorazepam, especially during recent travel. - Last prescription was in June and 10 tablets remain. - Planning to get a refill for future use. Gastrointestinal Concerns: - Took dicyclomine during a recent trip to manage symptoms, but no continued use after the trip. Medical History: - Hypertension - Anxiety Medications: - Losartan 50 mg daily for hypertension - Occasional lorazepam for anxiety - Vitamin D supplementation - Dicyclomine as needed for gastrointestinal discomfort Social History: - Engages in physical activity, including recent travel involving significant walking, reportedly improving stamina. Family History: - Mother had breast cancer in her 70s. Diagnostic Results: - Labs: Recent mammogram performed, result not specified. - Tests and diagnostics: Recent blood pressure readings: - Dental appointment: 128 mmHg systolic - Workplace readings vary from 130s-140s/76-80 mmHg Problem List - Essential Hypertension - Anxiety - Gastrointestinal spasm - Obesity Patient Instructions - Continue managing salt intake for blood pressure control. - Use lorazepam as needed and refill prescription. - Follow-up with counselor as beneficial. - Continue taking losartan 50 mg daily. - Perform regular breast exams. Orders: Orders Comprehensive Met. Panel Today E78.9 - Disorder of lipoprotein metabolism, unspecified, I10 - Essential (primary) hypertension LDL Cholesterol Direct Today E78.9 - Disorder of lipoprotein metabolism, unspecified, I10 - Essential (primary) hypertension Medications: Refilled lorazepam 0.5 mg PO BEDTIME PRN 30 tabs 0RF sleep 30 days
[2024-12-16 10:14] VITALS: BP 130/80; PULSE 88; O2SAT 98; BMI 37.4
--- OUTSIDE RECORDS SUMMARY | 2024-12-16 10:18 | XMS_ITS | Patient Health Record ---
Author Organization [facility] Address [address] [place] [address] Care Team Providers Care Network Liaison Name Role Phone Debbie GALE, [place] Primary Care Provide r Unavailable Estela Olmedo Unavailable [phone] Allergies Allergen (clinical drug ingredient) Drug/Non Drug [...] Insured Coverage Start Date Coverage End Date [facility] [address] [place] [address] [phone] [id number] JUAN J STONE Spouse - patient is the spouse of the insured Medical (General) History Medical History History ICD Code Knee Pain cervical cancer High blood pressure Irritable bowel syndrome Transfusions Surgical History Surgery Date(Month/Year) cervical ca 2008
--- OUTSIDE RECORDS SUMMARY | 2024-12-16 10:18 | XMS_ITS | Encounter Summary ---
Author Organization [facility] Address [address] [place] [address] Phone Care Team Providers Care Road Production General Manager Name Role Phone Li Evans MD Primary Care Provider + Encounter Details Date Type Department Care Team (Late st Contact Info) Description 11/22/2021 Procedure Pass [facility] Admitting Dept Virtual Department [address] [place] [address] Social History Tobacco Use Types Packs/Day Years Used Date Smoking Tobacco: Never Smokeless Tobacco: Never Alcohol Use Standard Drinks/Week Comments Yes 0 (1 standard drink = 0.6 oz pur e alcohol) rare Comments Unknown Sex and Gender Information Value Date Recorded Sex Assigned at Not on file Legal Sex Female 7:42 PM EST Gender Identity Not on file Sexual Orientation Not on file documented as of this encounter Plan of Treatment Not on file documented as of this encounter Visit Diagnoses Not on filedocumented in this encounter Care Teams Road Production General Manager Relationship Specialty Start Date End Date Li Evans MD [address] [place] [address] PCP - General 09/08/14 documented as of this encounter Additional Source Comments The information contained in this document represents components of the legal health record. It is not the complete legal health record.[facility]
== END 2024-12-16 10:52 | disposition home or self-care (01) ==
LOC: HO.HMCC 10:07
PROVIDERS: PCP Internal Medicine; Visit Provider Internal Medicine
DX: I10 Essential (primary) hypertension (principal); F41.1 Generalized anxiety disorder; E66.01 Morbid (severe) obesity due to excess calories; Z68.38 Body mass index [BMI] 38.0-38.9, adult; E78.9 Disorder of lipoprotein metabolism, unspecified; K58.0 Irritable bowel syndrome with diarrhea; E55.9 Vitamin D deficiency, unspecified; Z85.41 Personal history of malignant neoplasm of cervix uteri

== ENCOUNTER → 2024-12-16 10:06 | Outpatient (BNVA) | payer OTHER, SELFPAY | PROVIDERS: PCP Internal Medicine; Visit Provider Internal Medicine | DX: I10 Essential (primary) hypertension (principal); F41.1 Generalized anxiety disorder; E78.9 Disorder of lipoprotein metabolism, unspecified; K58.0 Irritable bowel syndrome with diarrhea; E55.9 Vitamin D deficiency, unspecified; E66.01 Morbid (severe) obesity due to excess calories; Z85.41 Personal history of malignant neoplasm of cervix uteri; Z68.37 Body mass index [BMI] 37.0-37.9, adult | CPT/HCPCS: 96127 ==